=== PATIENT | male | born 1955 | race Caucasian/White ===

== ENCOUNTER → 2018-03-16 10:52 | Outpatient (CLI) | payer BC, SELFPAY | PROVIDERS: PCP Internal Medicine; Visit Provider Internal Medicine | DX: R00.2 Palpitations (principal); I10 Essential (primary) hypertension | CPT/HCPCS: 93005 ==

== ENCOUNTER → 2020-06-19 10:39 | Outpatient (CLI) | payer BC, SELFPAY ==
--- NOTE | 2020-06-19 10:44 | XR_ITS ---
PROCEDURE: XR KUB CLINICAL INDICATION: LT FLANK PAIN,HEMATURIA,LLQ PAIN COMPARISON: CR KUB KUB (SINGLE VIEW) from 06/15/2014 CT ABDPELW/O CT ABD PELVIS W/O CONTRAST from 04/09/2017 FINDINGS: A cluster of stones is noted in the mid polar region of the left kidney measuring approximately 15 mm. Multiple pelvic calcifications are present and may be vascular having a similar appearance on the previous exam. Prostate calcifications are also noted. IMPRESSION: Left nephrolithiasis Dictated by: Pramod Patel MD 06/19/2020 11:28 Pramod Patel MD in [place] 06/19/2020 11:28
== END ==
PROVIDERS: PCP Internal Medicine; Visit Provider Internal Medicine
DX: R10.32 Left lower quadrant pain (principal); R31.0 Gross hematuria
CPT/HCPCS: 74018

== ENCOUNTER → 2020-06-28 10:19 | Outpatient (CLI) | payer BC, SELFPAY ==
--- NOTE | 2020-06-28 10:22 | CT_ITS ---
PROCEDURE: CT ABDOMEN PELVIS WO CON CLINICAL INDICATION: LLQ PAIN, HEMATURIA Left flank pain COMPARISON: CT ABDPELW/O CT ABD PELVIS W/O CONTRAST from 01/11/2014 CT ABDPELW/O CT ABD PELVIS W/O CONTRAST from 04/09/2017 TECHNIQUE: Axial images obtained with sagittal and coronal reformats. All CT scans at the facility use one or more dose reduction, viz: automated exposure control, ma/kV adjustment per patient size (including targeted exams where dose is matched to indication, i.e. head), or iterative reconstruction technique. FINDINGS: LOWER THORAX: Chronic changes are present in the lung bases. There are coronary artery calcifications. ABDOMEN & PELVIS: The liver, gallbladder, spleen, adrenal glands, and pancreas has an unremarkable appearance. There is a prominent uncinate process of the pancreas as a variant of normal Did scattered small nodes are present in the portal region not significantly changed. A cluster of stones is noted in the mid polar region of the left kidney measuring 15 by 6 mm. No ureteral calculi. No hydronephrosis. No intestinal obstruction or free air. There are scattered colonic diverticula. No evidence appendicitis. No evidence of diverticulitis. Coarse calcification is present within the central aspect of the prostate. No acute bony findings are evident. IMPRESSION: 1. Left nephrolithiasis. The stone burden has slightly increased compared to 04/09/2017. No ureteral calculi or hydronephrosis. 2. Colonic diverticulosis without diverticulitis with other nonacute findings as described above. Dictated by: Pramod Patel MD 06/29/2020 09:23 Pramod Patel MD in [facility] 06/29/2020 09:23
== END ==
PROVIDERS: PCP Internal Medicine; Visit Provider Internal Medicine
DX: R10.32 Left lower quadrant pain (principal); R31.9 Hematuria, unspecified
CPT/HCPCS: 74176

== ENCOUNTER → 2020-09-15 09:50 | Outpatient (CLI) | payer BC, SELFPAY ==
--- NOTE | 2020-09-15 09:55 | US_ITS ---
PROCEDURE: US TESTICULAR CLINICAL INDICATION: SCROTOL PAIN COMPARISON: No exams were available for comparison FINDINGS: The right testicle is 3.7 x 3.6 x 3.3 cm. There are 2 small epididymal cyst on the right. No testicular mass is evident. No hydrocele. The left testicle is 3.5 x 2.3 x 2.4 cm. Varicocele is noted on the left. No left testicular mass. There is blood flow within the left testicle. IMPRESSION: Left-sided varicocele. Two small right epididymal cysts Dictated by: Pramod Patel MD 09/15/2020 13:00 Pramod Patel MD in [place] 09/15/2020 13:00
== END ==
PROVIDERS: PCP Internal Medicine; Visit Provider Urology
DX: N50.82 Scrotal pain (principal)
CPT/HCPCS: 76870

== ENCOUNTER → 2021-07-10 14:22 | Outpatient (CLI) | payer MEDICARE, SELFPAY ==
[2021-07-10 14:32] LABS: Basophils # 0.1 K/mm3 (0-0.2); Basophils % 0.9 % (0.1-2.0); Eosinophils # 0.3 K/mm3 (0.0-0.4); Eosinophils % 3.7 % (0.1-12.0); Hematocrit 47.2 % (42.0-52.0); Hemoglobin 16.4 g/dL (14.1-18.0); Lymphocytes # 3.3 K/mm3 (0.7-4.5); Lymphocytes % 37.1 % (10-50); Mean Corpuscular HGB Conc 34.8 g/dL (31.8-35.4); Mean Corpuscular Hemoglobin 30.6 pg (27.0-31.2); Mean Corpuscular Volume 87.8 fl (80-94); Mean Platelet Volume 8.8 fl (7.4-10.4); Monocytes # 0.7 K/mm3 (0.1-1.0); Neutrophils # 4.5 K/mm3 (1.8-7.8); Neutrophils % 50.2 % (37.0-80.0); Platelet Count 199 K/mm3 (142-424); Red Blood Count 5.38 M/mm3 (4.60-6.20); Red Cell Distribution Width 13.8 % (11.5-17.5)
[2021-07-10 15:06] LABS: Alanine Aminotransferase 37 U/L (12-78); Albumin Level 4.3 g/dl (3.5-5.0); Albumin/Globulin Ratio 1.7 (1.1-1.8); Alkaline Phosphatase 62 U/L (38-126); Anion Gap 13.1 mEq/L (5-15); Aspartate Amino Transferase 44 U/L (17-59); Bilirubin,Total 0.6 mg/dl (0.2-1.3); Blood Urea Nitrogen 13 mg/dl (9-20); Calcium 9.4 mg/dl (8.4-10.2); Carbon Dioxide 26 mmol/L (22.0-30.0); Chloride 105 mmol/L (98-107); Chol/HDL Ratio 4.5 (1-3.5); Cholesterol 159 mg/dl (140-200); Estimated Glomerular Filt Rate 61 ml/min (>60); GFR (African American) 74 ML/MIN (>60); Globulin 2.6 g/dL (1.3-3.2); Glucose 102 mg/dl (74-100); HDL Cholesterol 35 mg/dl (40-60); Potassium 5.1 mmoL/L (3.5-5.1); Sodium 139 mmol/L (136-145); Total Protein,Serum 6.9 g/dl (6.3-8.2); Triglycerides 243 mg/dl (30-150); VLDL Cholesterol 49 mg/dL (0-40)
== END ==
PROVIDERS: Visit Provider Internal Medicine
DX: I25.10 Atherosclerotic heart disease of native coronary artery without angina pectoris (principal); E78.5 Hyperlipidemia, unspecified; E53.8 Deficiency of other specified B group vitamins; J44.9 Chronic obstructive pulmonary disease, unspecified
CPT/HCPCS: 80053; 80061; 85025

== ENCOUNTER → 2022-01-07 12:17 | Outpatient (CLI) | payer MEDICARE, SELFPAY ==
[2022-01-07 14:28] LABS: Basophils # 0.1 K/mm3 (0-0.2); Basophils % 1.5 % (0.1-2.0); Eosinophils # 0.5 K/mm3 (0.0-0.4); Eosinophils % 4.6 % (0.1-12.0); Hemoglobin 17.2 g/dL (14.1-18.0); Lymphocytes # 3.2 K/mm3 (0.7-4.5); Lymphocytes % 33.2 % (10-50); Mean Corpuscular HGB Conc 33.1 g/dL (31.8-35.4); Mean Corpuscular Hemoglobin 29.4 pg (27.0-31.2); Mean Corpuscular Volume 88.9 fl (80-94); Mean Platelet Volume 8.7 fl (7.4-10.4); Monocytes # 0.7 K/mm3 (0.1-1.0); Monocytes % 7.6 % (1.7-9.3); Neutrophils # 5.2 K/mm3 (1.8-7.8); Neutrophils % 53.1 % (37.0-80.0); Platelet Count 194 K/mm3 (142-424); Red Blood Count 5.85 M/mm3 (4.60-6.20); Red Cell Distribution Width 14.4 % (11.5-17.5); White Blood Count 9.7 K/mm3 (4.8-10.8)
[2022-01-07 14:32] LABS: Alanine Aminotransferase 43 U/L (12-78); Albumin Level 4.2 g/dl (3.5-5.0); Albumin/Globulin Ratio 1.7 (1.1-1.8); Alkaline Phosphatase 69 U/L (38-126); Anion Gap 12.7 mEq/L (5-15); Aspartate Amino Transferase 39 U/L (17-59); Bilirubin,Total 0.4 mg/dl (0.2-1.3); Blood Urea Nitrogen 13 mg/dl (9-20); Calcium 9.1 mg/dl (8.4-10.2); Carbon Dioxide 23 mmol/L (22.0-30.0); Chloride 107 mmol/L (98-107); Chol/HDL Ratio 4.8 (1-3.5); Cholesterol 179 mg/dl (140-200); Estimated Glomerular Filt Rate 75 ml/min (>60); GFR (African American) 91 ML/MIN (>60); Globulin 2.5 g/dL (1.3-3.2); Glucose 116 mg/dl (74-100); HDL Cholesterol 37 mg/dl (40-60); Potassium 4.7 mmoL/L (3.5-5.1); Sodium 138 mmol/L (136-145); Total Protein,Serum 6.7 g/dl (6.3-8.2); Triglycerides 257 mg/dl (30-150); VLDL Cholesterol 51 mg/dL (0-40)
[2022-01-07 14:44] LABS: Direct LDL Cholesterol 102.77 mg/dL (100-129)
[2022-01-07 15:01] LABS: Prostate Specific Ag Screen 0.5 ng/ml (0.0-4.0)
== END ==
PROVIDERS: PCP Internal Medicine; Visit Provider Internal Medicine
DX: I25.10 Atherosclerotic heart disease of native coronary artery without angina pectoris (principal); E78.5 Hyperlipidemia, unspecified; E53.8 Deficiency of other specified B group vitamins; J44.9 Chronic obstructive pulmonary disease, unspecified; Z12.5 Encounter for screening for malignant neoplasm of prostate
CPT/HCPCS: 80053; 80061; 85025; G0103

== ENCOUNTER → 2022-07-16 12:11 | Outpatient (CLI) | payer MEDICARE, SELFPAY ==
[2022-07-16 14:43] LABS: Alanine Aminotransferase 40 U/L (12-78); Albumin Level 4.4 g/dl (3.5-5.0); Albumin/Globulin Ratio 1.9 (1.1-1.8); Alkaline Phosphatase 87 U/L (38-126); Anion Gap 21.2 mEq/L (5-15); Aspartate Amino Transferase 43 U/L (17-59); Bilirubin,Total 0.5 mg/dl (0.2-1.3); Blood Urea Nitrogen 14 mg/dl (9-20); Calcium 9.5 mg/dl (8.4-10.2); Carbon Dioxide 27 mmol/L (22.0-30.0); Chloride 97 mmol/L (98-107); Chol/HDL Ratio 4.2 (1-3.5); Cholesterol 157 mg/dl (140-200); Estimated Glomerular Filt Rate 55 ml/min (>60); GFR (African American) 67 ML/MIN (>60); Globulin 2.3 g/dL (1.3-3.2); Glucose 103 mg/dl (74-100); HDL Cholesterol 37 mg/dl (40-60); Potassium 4.2 mmoL/L (3.5-5.1); Sodium 141 mmol/L (136-145); Total Protein,Serum 6.7 g/dl (6.3-8.2); Triglycerides 310 mg/dl (30-150); VLDL Cholesterol 62 mg/dL (0-40)
[2022-07-16 14:55] LABS: Direct LDL Cholesterol 76.39 mg/dL (100-129)
[2022-07-16 17:31] LABS: Basophils # 0.1 K/mm3 (0-0.2); Basophils % 1.5 % (0.1-2.0); Eosinophils # 0.3 K/mm3 (0.0-0.4); Eosinophils % 3.2 % (0.1-12.0); Hematocrit 49.7 % (42.0-52.0); Hemoglobin 15.8 g/dL (14.1-18.0); Lymphocytes # 2.6 K/mm3 (0.7-4.5); Lymphocytes % 30.2 % (10-50); Mean Corpuscular HGB Conc 31.9 g/dL (31.8-35.4); Mean Corpuscular Volume 94.3 fl (80-94); Mean Platelet Volume 9.5 fl (7.4-10.4); Monocytes # 0.6 K/mm3 (0.1-1.0); Monocytes % 7.4 % (1.7-9.3); Neutrophils # 4.9 K/mm3 (1.8-7.8); Neutrophils % 57.6 % (37.0-80.0); Platelet Count 186 K/mm3 (142-424); Red Blood Count 5.26 M/mm3 (4.60-6.20); Red Cell Distribution Width 13.5 % (11.5-17.5); White Blood Count 8.5 K/mm3 (4.8-10.8)
== END ==
PROVIDERS: PCP Internal Medicine; Visit Provider Internal Medicine
DX: I25.10 Atherosclerotic heart disease of native coronary artery without angina pectoris (principal); I49.3 Ventricular premature depolarization; E78.5 Hyperlipidemia, unspecified; E53.8 Deficiency of other specified B group vitamins; F41.9 Anxiety disorder, unspecified
CPT/HCPCS: 80053; 80061; 85025

== ENCOUNTER → 2022-12-23 12:35 | Outpatient (CLI) | payer MEDICARE, SELFPAY ==
[2022-12-23 15:25] LABS: Hemoglobin A1C 5.7 % (4.0-6.0)
[2022-12-23 15:49] LABS: Alanine Aminotransferase 45 U/L (12-78); Albumin Level 4.4 g/dl (3.5-5.0); Albumin/Globulin Ratio 1.9 (1.1-1.8); Alkaline Phosphatase 69 U/L (38-126); Anion Gap 18.5 mEq/L (5-15); Aspartate Amino Transferase 43 U/L (17-59); Bilirubin,Total 0.7 mg/dl (0.2-1.3); Blood Urea Nitrogen 15 mg/dl (9-20); Calcium 8.9 mg/dl (8.4-10.2); Carbon Dioxide 25 mmol/L (22.0-30.0); Chloride 100 mmol/L (98-107); Chol/HDL Ratio 4.1 (1-3.5); Cholesterol 167 mg/dl (140-200); Estimated Glomerular Filt Rate 67 ml/min (>60); GFR (African American) 81 ML/MIN (>60); Globulin 2.3 g/dL (1.3-3.2); Glucose 114 mg/dl (74-100); HDL Cholesterol 41 mg/dl (40-60); Potassium 4.5 mmoL/L (3.5-5.1); Sodium 139 mmol/L (136-145); Total Protein,Serum 6.7 g/dl (6.3-8.2); Triglycerides 321 mg/dl (30-150); VLDL Cholesterol 64 mg/dL (0-40)
[2022-12-23 16:01] LABS: Direct LDL Cholesterol 79.84 mg/dL (100-129)
[2022-12-23 16:19] LABS: Prostate Specific Ag Screen 0.5 ng/ml (0.0-4.0)
== END ==
PROVIDERS: PCP Internal Medicine; Visit Provider Internal Medicine
DX: I25.10 Atherosclerotic heart disease of native coronary artery without angina pectoris (principal); I49.3 Ventricular premature depolarization; E53.8 Deficiency of other specified B group vitamins; E78.5 Hyperlipidemia, unspecified; F41.9 Anxiety disorder, unspecified; N40.1 Benign prostatic hyperplasia with lower urinary tract symptoms; Z12.5 Encounter for screening for malignant neoplasm of prostate; R73.9 Hyperglycemia, unspecified
CPT/HCPCS: 80053; 80061; 83036; G0103

== ENCOUNTER → 2023-06-23 14:23 | Outpatient (CLI) | payer MEDICARE, SELFPAY ==
[2023-06-23 16:59] LABS: Alanine Aminotransferase 39 U/L (12-78); Albumin Level 4.5 g/dl (3.5-5.0); Albumin/Globulin Ratio 1.8 (1.1-1.8); Alkaline Phosphatase 62 U/L (38-126); Anion Gap 17.5 mEq/L (5-15); Aspartate Amino Transferase 41 U/L (17-59); Bilirubin,Total 0.6 mg/dl (0.2-1.3); Blood Urea Nitrogen 17 mg/dl (9-20); Calcium 9.5 mg/dl (8.4-10.2); Carbon Dioxide 25 mmol/L (22.0-30.0); Chloride 104 mmol/L (98-107); Chol/HDL Ratio 4.4 (1-3.5); Cholesterol 164 mg/dl (140-200); Estimated Glomerular Filt Rate 55 ml/min (>60); GFR (African American) 67 ML/MIN (>60); Globulin 2.5 g/dL (1.3-3.2); Glucose 101 mg/dl (74-100); HDL Cholesterol 37 mg/dl (40-60); Potassium 4.5 mmoL/L (3.5-5.1); Sodium 142 mmol/L (136-145); Triglycerides 289 mg/dl (30-150); VLDL Cholesterol 58 mg/dL (0-40)
[2023-06-23 17:10] LABS: Direct LDL Cholesterol 86.59 mg/dL (100-129)
[2023-06-23 17:14] LABS: Hemoglobin A1C 5.6 % (4.0-6.0)
[2023-06-23 17:27] LABS: Prostate Specific Ag Screen 0.5 ng/ml (0.0-4.0)
== END ==
PROVIDERS: PCP Internal Medicine; Visit Provider Internal Medicine
DX: I25.10 Atherosclerotic heart disease of native coronary artery without angina pectoris (principal); I49.3 Ventricular premature depolarization; E78.5 Hyperlipidemia, unspecified; E53.8 Deficiency of other specified B group vitamins; F32.1 Major depressive disorder, single episode, moderate; J44.9 Chronic obstructive pulmonary disease, unspecified; R73.02 Impaired glucose tolerance (oral); N40.1 Benign prostatic hyperplasia with lower urinary tract symptoms; Z12.5 Encounter for screening for malignant neoplasm of prostate; Z83.3 Family history of diabetes mellitus
CPT/HCPCS: 80053; 80061; 83036; G0103

== ENCOUNTER → 2023-07-28 14:49 | Outpatient (CLI) | payer MEDICARE, SELFPAY ==
--- NOTE | 2023-07-28 14:54 | XR_ITS ---
FINAL REPORT CLINICAL HISTORY: mid back pain lumbar pain with rt sciatica pain COMPARISON: None FINDINGS: CERVICAL SPINE 5 views were obtained. There is no acute fracture. There is moderate disc space narrowing at C6-7. There is prominent anterior osteophyte formation at C6-7. There is no malalignment. THORACIC SPINE 3 views of the thoracic spine were obtained. There is no acute fracture. Vertebrae are normal in height. Disc spaces are preserved. There is no malalignment. LUMBOSACRAL SPINE 5 views of the lumbosacral spine were obtained. There is no acute fracture. There is moderate anterior osteophyte formation at L4-5. Vertebrae are normal in height. There is no malalignment. IMPRESSION: No acute process in the cervical, thoracic, or lumbosacral spine. Reviewed, Interpreted and Dictated by Mj Wilson MD Transcribed by Treva Ramirez Authenticated and . [facility]
== END ==
PROVIDERS: PCP Internal Medicine; Visit Provider Internal Medicine
DX: M54.41 Lumbago with sciatica, right side (principal); M54.2 Cervicalgia; M54.6 Pain in thoracic spine
CPT/HCPCS: 72084

== ENCOUNTER 2023-09-17 14:00 | Outpatient (RCR) | payer MEDICARE, SELFPAY | END 2023-09-17 15:00 | disposition home or self-care (01) | LOC: PT 14:00 | PROVIDERS: PCP Internal Medicine; Visit Provider Internal Medicine | DX: M54.2 Cervicalgia (principal); M54.6 Pain in thoracic spine; M54.50 Low back pain, unspecified | CPT/HCPCS: 97010; 97014; 97110; 97163; 97530; G0283 ==

== ENCOUNTER 2024-08-26 11:54 | Outpatient (CLI) | payer MEDICARE, SELFPAY ==
[2024-08-26 11:46] LABS: Basophils # 0.1 K/mm3 (0-0.2); Basophils % 0.9 % (0.1-2.0); Eosinophils # 0.4 K/mm3 (0.0-0.4); Eosinophils % 3.5 % (0.1-12.0); Hematocrit 51.8 % (42.0-52.0); Hemoglobin 17.2 g/dL (14.1-18.0); Lymphocytes % 29.4 % (10-50); Mean Corpuscular HGB Conc 33.2 g/dL (31.8-35.4); Mean Corpuscular Hemoglobin 29.9 pg (27.0-31.2); Mean Corpuscular Volume 89.9 fl (80-94); Mean Platelet Volume 9.9 fl (7.4-10.4); Monocytes % 9.3 % (1.7-9.3); Neutrophils # 5.8 K/mm3 (1.8-7.8); Neutrophils % 56.3 % (37.0-80.0); Platelet Count 177 K/mm3 (142-424); Red Blood Count 5.76 M/mm3 (4.60-6.20); Red Cell Distribution Width 13.5 % (11.5-17.5); White Blood Count 10.4 K/mm3 (4.8-10.8)
[2024-08-26 12:11] LABS: Albumin Level 4.7 g/dl (3.5-5.0); Chloride 104 mmol/L (98-107)
[2024-08-26 12:12] LABS: Potassium 5.4 mmoL/L (3.5-5.1); Sodium 142 mmol/L (136-145)
[2024-08-26 12:14] LABS: Alanine Aminotransferase 32 U/L (12-78); Aspartate Amino Transferase 41 U/L (17-59); Blood Urea Nitrogen 15 mg/dl (9-20); Estimated Glomerular Filt Rate 60 ml/min (>60); GFR (African American) 73 ML/MIN (>60)
[2024-08-26 12:15] LABS: Alkaline Phosphatase 65 U/L (38-126); Anion Gap 15.4 mEq/L (5-15); Bilirubin,Total 0.7 mg/dl (0.2-1.3); Calcium 9.9 mg/dl (8.4-10.2); Carbon Dioxide 28 mmol/L (22.0-30.0); Chol/HDL Ratio 4.2 (1-3.5); Cholesterol 163 mg/dl (140-200); Globulin 2.3 g/dL (1.3-3.2); Glucose 104 mg/dl (74-100); HDL Cholesterol 39 mg/dl (40-60); Triglycerides 244 mg/dl (30-150); VLDL Cholesterol 49 mg/dL (0-40)
[2024-08-26 12:37] LABS: Direct LDL Cholesterol 85.87 mg/dL (100-129)
[2024-08-26 13:47] LABS: Prostate Specific Ag Screen 0.4 ng/ml (0.0-4.0)
== END 2024-08-26 23:59 | disposition home or self-care (01) ==
LOC: LAB.DROPOF 11:55
PROVIDERS: PCP Internal Medicine; Visit Provider Internal Medicine
DX: I25.10 Atherosclerotic heart disease of native coronary artery without angina pectoris (principal); E78.5 Hyperlipidemia, unspecified; I49.3 Ventricular premature depolarization; Z12.5 Encounter for screening for malignant neoplasm of prostate
CPT/HCPCS: 80053; 80061; 85025; G0103

== ENCOUNTER 2025-02-17 09:47 | Outpatient (CLI) | payer MEDICARE, SELFPAY ==
--- OUTSIDE RECORDS SUMMARY | 2025-01-04 09:00 | XMS_ITS | Encounter Summary ---
Author Organization [facility] ([place], [place], [place], [place]) Address [address] [place] [address] Care Team Providers Care Import And Export Clerk Name Role Phone Roc Bonilla MD Primary Care Provider [phone] Marisa Coy REMNANT SORTER Unavailable [phone] Reason for Visit * Reason Comments Follow-up Encounter Details Date Type Department Care Team (Late st Contact Info) Description 01/04/2025 9:00 AM EDT Office Visit [facility] Cardiology [address] [phone] [place] SwitchMarisa chávez, REMNANT SORTER [address] [facility] [address] [place] [address] ASCVD (arteriosclerotic cardiovascular disease) (Primary Dx); Benign essential hypertension; Hyperlipidemia; Obstructive sleep apnea; PVC (premature ventricular contraction); Morbid obesity (HCC) Social History Tobacco Use Types Packs/Day Years Used Date Smoking Tobacco: Former Cigarettes 2.5 30 Smokeless Tobacco: Never Alcohol Use Standard Drinks/Week Comments Yes 0 (1 standard drink = 0.6 oz pur e alcohol) a little bit not much Family and Community Support Answer Alfonso e Recorded Help with Day to Day Activities Not on file 08/28/2023 Feeling Lonely or Isolated Not on file 08/28 Educational Attainment Answer Date Ajit rded Speak language other than Micronesian at home Not on file 08/28/2023 Want help with school or training Not on file 08/28/2023 Substance Use Answer Date Recorded Used prescription meds for non-medical reasons N ot on file 08/28/2023 Used illegal drugs past 12 months Not on file 08/28/2023 Sex and Gender Information Value Date Recorded Sex Assigned at Not on file Legal Sex Male 4:36 PM CDT Gender Identity Not on file Sexual Orientation Not on file Occupation Industry Job Start Date Job End Date retired Not on file Not on file Not on file documented as of this encounter Last Filed Vital Signs Vital Sign Reading Time Taken Comments Blood Pressure 120/80 01/04/2025 8:57 AM EDT Pulse 56 01/04/2025 8:57 AM EDT Temperature - - Respiratory Rate - - Oxygen Saturation - - Inhaled Oxygen Concentration - - Weight 105.2 kg (232 lb) 01/04/2025 8:57 AM EDT Height 185.4 cm (6' 1 ) 01/04/2025 8:57 AM EDT Body Mass Index 30.61 01/04/2025 8:57 AM EDT documented in this encounter Progress Notes * Marisa Coy, REMNANT SORTER - 01/04/2025 9:00 AM EDT Basic Information: Name: Antonio Ramirez, :1955 PCP: Roc Bonilla MD HPI: Antonio Ramirez is a 69 y.o. year old male with a past medical history of CAD status post multiple stents done remotely outside hospitals, frequent symptomatic PVCs, hypertension, and dyslipidemia. He presents to the office today for 1 month follow up and to discuss the results of his recent stress test and ECHO. He continues to have episodes of occasional twinges in the right side of his chest that feels like a stinging pain. He is compliant with his medications. He denies any chest pain shortness of breath, palpitations, dizziness, edema, or syncope. Review of Systems: ROS Pertinent positives as listed in the HPI. All other systems reviewed are negative. History: History Past Medical History: Diagnosis Date ASCVD (arteriosclerotic cardiovascular disease) Benign essential hypertension COPD (chronic obstructive pulmonary disease) (HCC) Hard of hearing Mixed hyperlipidemia Myocardial infarction (HCC) 08/07/2022 PVC (premature ventricular contraction) Stented coronary artery Past Surgical History: Procedure Laterality Date CORONARY ANGIOPLASTY WITH STENT PLACEMENT LUNG SURGERY Social History Tobacco Use Smoking status: Former Current packs/day: 2.50 Average packs/day: 2.5 packs/day for 30.0 years (75.0 ttl pk-yrs) Types: Cigarettes Smokeless tobacco: Never Substance Use Topics Alcohol use: Yes Comment: a little bit not much Allergies Allergen Reactions Morphine Nausea And Vomiting Skelaxin [Metaxalone] Tolmetin Other (See Comments) Medications: Scheduled Meds: Continuous Infusions: Current Outpatient Medications Medication Sig Dispense Refill amLODIPine (NORVASC) 5 MG tablet TAKE ONE TABLET BY MOUTH EVERY DAY 90 tablet 4 aspirin 81 MG EC tablet Take 1 tablet (81 mg total) by mouth daily. bisoprolol (ZEBETA) 5 MG tablet TAKE 1/2 TABLET BY MOUTH EVERY DAY 90 tablet 3 codeine-guaifenesin (GUAIFENESIN AC) 10-100 mg/5 mL liquid Take 5 mLs by mouth 3 (three) times daily as needed for cough. diazePAM (VALIUM) 5 MG tablet Take 1 tablet (5 mg total) by mouth 2 (two) times daily as needed. escitalopram oxalate (LEXAPRO) 10 MG tablet Take 1 tablet (10 mg total) by mouth daily. (Patient taking differently: Take 2 tablets (20 mg total) by mouth daily.) flecainide (TAMBOCOR) 50 MG tablet TAKE 1 AND 1/2 TABLET BY MOUTH TWICE DAILY 270 tablet 4 linaCLOtide (LINZESS) 145 mcg Cap Take 1 capsule (145 mcg total) by mouth daily as needed As needed. potassium citrate 15 mEq TbER Take 1 tablet (15 mEq total) by mouth 2 (two) times daily. rosuvastatin (CRESTOR) 20 MG tablet TAKE ONE TABLET BY MOUTH EVERY night 90 tablet 0 zolpidem (AMBIEN) 5 MG tablet Take 1 tablet (5 mg total) by mouth every night as needed. No current facility-administered medications for this visit. PRN Meds:.@MEDSPRN@ Objective: BP 120/80 (BP Location: Left arm, Patient Position: Sitting) Pulse 56 Ht 1.854 m (6' 1 ) Wt 105.2 kg (232 lb) BMI 30.61 kg/m?? Physical Exam Vitals reviewed. Constitutional: Appearance: Normal appearance. HENT: Head: Normocephalic. Neck: Vascular: No carotid bruit. Cardiovascular: Rate and Rhythm: Normal rate and regular rhythm. Pulses: Normal pulses. Heart sounds: Normal heart sounds. No murmur heard. Pulmonary: Effort: Pulmonary effort is normal. Breath sounds: Normal breath sounds. Abdominal: General: There is no distension. Palpations: Abdomen is soft. Musculoskeletal: General: No swelling or deformity. Skin: General: Skin is warm and dry. Capillary Refill: Capillary refill takes less than 2 seconds. Neurological: General: No focal deficit present. Mental Status: He is alert and oriented to person, place, and time. Psychiatric: Mood and Affect: Mood normal. Behavior: Behavior normal. EKG: Sinus bradycardia with first degree AV block, ventricular rate 55 bpm Assessment: 1. ASCVD (arteriosclerotic cardiovascular disease) 2. Benign essential hypertension 3. Hyperlipidemia 4. Obstructive sleep apnea 5. PVC (premature ventricular contraction) 6. Morbid obesity (HCC) * Coronary artery disease- denies anginal symptoms -History of multiple stents OSH -11/2024 ECHO- EF 55%, normal diastolic function, no significant valvular disease -11/2024 Lexiscan MPI - no reversible defects, low risk study *Frequent PVCs-follows with EP *Hypertension-controlled on current medications *Hyperlipidemia- statin therapy * SUNDAY- not complaint with CPAP *Obesity Plan: -Continue with aspirin 81 mg indefinitely along with high intensity statin therapy for established CAD. -Periodic blood work as prescribed with PCP, specifically lipid profile with a goal LDL less than 55. -Blood pressure at goal today continue current antihypertensive regimen. -PA for Bahman has been obtained. He is now unsure if he would like to take this medication. He will call back to our office if he changes his mind. -Encouraged patient to increase physical activity for a goal of 150 minutes of moderate cardiovascular activity each week. Follow a heart healthy diet to reduce cardiovascular risk. Follow- up: 6 months or sooner if needed documented in this encounter Plan of Treatment Upcoming Encounters Date Type Department Care Team (Late st Contact Info) Description 03/10/2025 9:45 AM EDT Office Visit [facility] Electrophysiology [address] [place] [address] Jorge Luis Ervin MD [address] [place] [address] [address] [place] [id number] documented as of this encounter Procedures Procedure Name Priority Date/Time Associated Diagnosis Comments [id number] 12-LEAD Routine 01/05/2025 4:48 PM EDT ASCVD (arteriosclerotic cardiovascular disease) Benign essential hypertension documented in this encounter Results * ECG 12 lead (01/05/2025 4:48 PM EDT) Marisa Olivares [place] APRN ECG ORDERABLES Final Result documented in this encounter Visit Diagnoses Diagnosis ASCVD (arteriosclerotic cardiovascular disease)- Primary Unspecified cardiovascular disease Benign essential hypertension Essential hypertension, benign Hyperlipidemia Other and unspecified hyperlipidemia Obstructive sleep apnea Obstructive sleep apnea (adult) (pediatric) PVC (premature ventricular contraction) Other premature beats Morbid obesity (HCC) Morbid obesity documented in this encounter Care Teams Import And Export Clerk Relationship Specialty Start Date End Date Roc Bonilla MD [address] [place] [address] [place] [address] PCP - General General Internal Medicine 08/07/22 Marisa Coy, KAILEY [address] [facility] [address] [place] [address] Cardiology 10/09/23 documented as of this encounter
[2025-02-17 15:44] LABS: Alanine Aminotransferase 32 U/L (12-78); Albumin Level 4.6 g/dl (3.5-5.0); Albumin/Globulin Ratio 1.8 (1.1-1.8); Alkaline Phosphatase 64 U/L (38-126); Anion Gap 13.8 mEq/L (5-15); Aspartate Amino Transferase 36 U/L (17-59); Bilirubin,Total 0.8 mg/dl (0.2-1.3); Blood Urea Nitrogen 15 mg/dl (9-20); Calcium 9.3 mg/dl (8.4-10.2); Carbon Dioxide 26 mmol/L (22.0-30.0); Chloride 102 mmol/L (98-107); Cholesterol 146 mg/dl (140-200); Creatinine,Serum 1.00 mg/dl (0.66-1.25); Estimated Glomerular Filt Rate 74 ml/min (>60); GFR (African American) 90 ML/MIN (>60); Globulin 2.5 g/dL (1.3-3.2); Glucose 97 mg/dl (74-100); HDL Cholesterol 32 mg/dl (40-60); Potassium 4.8 mmoL/L (3.5-5.1); Sodium 137 mmol/L (136-145); Total Protein,Serum 7.1 g/dl (6.3-8.2)
[2025-02-17 15:56] LABS: Triglycerides 414 mg/dl (30-150)
--- OUTSIDE RECORDS SUMMARY | 2025-02-21 09:58 | XMS_ITS | Encounter Summary ---
Author Organization [employer] ([place], [place], [place], [place]) Address [address] [place] [address] Care Team Providers Care [employer] Name Role Phone Roc Bonilla MD Primary Care Provider [phone] Marisa Coy APRN Unavailable [phone] Encounter Details Date Type Department Care Team (Late st Contact Info) Description 09/18/2020 Transcribed Document [facility] Family Medicine [address] [place] [address] ProviderAlexander MD [address] [place] [address] Social History Tobacco Use Types Packs/Day Years Used Date Smoking Tobacco: Never Assessed Sex and Gender Information Value Date Recorded Sex Assigned at Not on file Legal Sex Male 4:36 PM CDT Gender Identity Not on file Sexual Orientation Not on file documented as of this encounter Miscellaneous Notes * Cerner Conversion Note - Alexander ProviderMD - 09/18/2020 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 [place] [id number] THA RAMIREZ :1955 Visit Time:09/18/2020 What to do next Your Diagnosis Calculus of kidney, Calculus of kidney Instructions From Your Care Team Diet after Discharge: Resume usual diet as tolerated, Do not drink any alcoholic beverages, Drink at least 8-10 glasses of water per day Activity after Discharge: As tolerated, Rest and relax today, No strenuous activity. walk 3-5x/day Driving after Discharge: Do not drive until 24 hours after no longer taking pain medications Showering/Bathing: May shower. no tubs baths until stent is removed. take a pain pill 30 min before removing the stent on morning. drink a glass or two of water and urinate while gently pulling the string out. Notify Provider of: excessive bleeding (tomato paste color/consistency) or lots of clots. also notify of inability to urinate. Medical Equipment for Home Use: strainer/cup for stone storage. strain urine for 2 weeks and keep stones in container to show at follow up appt. Take pain medicine with food to prevent nausea and use stool softeners 2-3x/day to prevent constipation do postural drainage exercises 2x/day for 2 weeks. Discharge Follow Up Instructions: Follow up Yury 6 weeks with KUB Activity: Discharge Activity: Activity as tolerated Diet: Discharge Diet: Resume usual diet as tolerated Follow-Up Appointments Follow Up with JENNIFER CARRANZA When 10/30/2020 11:30 AM EDT Comments Appointment has been made. you will have a kub scan at this appt Where: [address] [place] [address] [facility] (1) Medications What How Much When Instructions Next Dose acetaminophen (Tylenol) See instructions OTC unsure of dose 1 or 2 tabs oral prn pain atorvastatin 40 Milligram(s) Oral At Bedtime bisoprolol 5 Milligram(s) Oral Every Day codeine/ phenylephrine/ promethazine (Promethazine VC with Codeine) 5 Milliliter(s) Oral Every 6 Hours as needed for as needed for cough diazepam (Valium) 5 Milligram(s) Oral As needed for Anxiety lisinopril 10 Milligram(s) Oral Every Day mexiletine (mexiletine 200 mg oral capsule) 1 Capsule(s) Oral Every 8 Hours rosuvastatin (rosuvastatin 20 mg oral tablet) 1 Tablet(s) Oral Every Day Take your medications faithfully. Do NOT skip medication. Do NOT stop taking medications without the direction of a physician. Carry a list of your medications with you at all times, and take this medication list with you to your first follow up visit. Report any side effects. Avoid herbal remedies unless discussed with your physician. As part of your treatment plan, your physician may have prescribed a limited course of a controlled substance. This medication may be given to help people with moderate or severe pain or for other medical conditions, but there are risks involved with treatment. Common side effects may include nausea, constipation, drowsiness, sweating, itching, dry mouth, and rash. More serious side effects may include cognitive and motor impairment, like problems with thinking, concentrating, alertness, and movement (e.g. slowed reflexes), and driving and operating heavy machinery can be dangerous. It is important for you to talk to your physician if you have these side effects or questions. These controlled substances can produce physical dependence and be habit-forming if taken for an extended period of time, which means that the body has gotten used to them and may experience withdrawal symptoms if they are abruptly stopped. Withdrawal symptoms can include runny nose, sweating, goose bumps, diarrhea, abdominal cramping, rapid heartbeat, difficulty sleeping, and nervousness. Please dispose of unused and medications per pharmacy guidance. Education Materials General Anesthesia, Adult, Care After This sheet gives you information about how to care for yourself after your procedure. Your health care provider may also give you more specific instructions. If you have problems or questions, contact your health care provider. What can I expect after the procedure? After the procedure, the following side effects are common: ??? Pain or discomfort at the IV site. ??? Nausea. ??? Vomiting. ??? Sore throat. ??? Trouble concentrating. ??? Feeling cold or chills. ??? Weak or tired. ??? Sleepiness and fatigue. ??? Soreness and body aches. These side effects can affect parts of the body that were not involved in surgery. Follow these instructions at home: For at least 24 hours after the procedure: ??? Have a responsible adult stay with you. It is important to have someone help care for you until you are awake and alert. ??? Rest as needed. ??? Do not: ? Participate in activities in which you could fall or become injured. ? Drive. ? Use heavy machinery. ? Drink alcohol. ? Take sleeping pills or medicines that cause drowsiness. ? Make important decisions or sign legal documents. ? Take care of children on your own. Eating and drinking ??? Follow any instructions from your health care provider about eating or drinking restrictions. ??? When you feel hungry, start by eating small amounts of foods that are soft and easy to digest (bland), such as toast. Gradually return to your regular diet. ??? Drink enough fluid to keep your urine pale yellow. ??? If you vomit, rehydrate by drinking water, juice, or clear broth. General instructions ??? If you have sleep apnea, surgery and certain medicines can increase your risk for breathing problems. Follow instructions from your health care provider about wearing your sleep device: ? Anytime you are sleeping, including during daytime naps. ? While taking prescription pain medicines, sleeping medicines, or medicines that make you drowsy. ??? Return to your normal activities as told by your health care provider. Ask your health care provider what activities are safe for you. ??? Take [id number] and prescription medicines only as told by your health care provider. ??? If you smoke, do not smoke without supervision. ??? Keep all follow-up visits as told by your health care provider. This is important. Contact a health care provider if: ??? You have nausea or vomiting that does not get better with medicine. ??? You cannot eat or drink without vomiting. ??? You have pain that does not get better with medicine. ??? You are unable to pass urine. ??? You develop a skin rash. ??? You have a fever. ??? You have redness around your IV site that gets worse. Get help right away if: ??? You have difficulty breathing. ??? You have chest pain. ??? You have blood in your urine or stool, or you vomit blood. Summary ??? After the procedure, it is common to have a sore throat or nausea. It is also common to feel tired. ??? Have a responsible adult stay with you for the first 24 hours after general anesthesia. It is important to have someone help care for you until you are awake and alert. ??? When you feel hungry, start by eating small amounts of foods that are soft and easy to digest (bland), such as toast. Gradually return to your regular diet. ??? Drink enough fluid to keep your urine pale yellow. ??? Return to your normal activities as told by your health care provider. Ask your health care provider what activities are safe for you. This information is not intended to replace advice given to you by your health care provider. Make sure you discuss any questions you have with your health care provider. Document Released: 11/10/2001 Document Revised: 08/07/2018 Document Reviewed: 03/20/2018 Elsevier Patient Education ?? 2020 [employer] Dietary Guidelines to Help Prevent Kidney Stones Kidney stones are deposits of minerals and salts that form inside your kidneys. Your risk of developing kidney stones may be greater depending on your diet, your lifestyle, the medicines you take, and whether you have certain medical conditions. Most people can reduce their chances of developing kidney stones by following the instructions below. Depending on your overall health and the type of kidney stones you tend to develop, your dietitian may give you more specific instructions. What are tips for following this plan? Reading food labels ??? Choose foods with no salt added or low-salt labels. Limit your sodium intake to less than 1500 mg per day. ??? Choose foods with calcium for each meal and snack. Try to eat about 300 mg of calcium at each meal. Foods that contain 200???500 mg of calcium per serving include: ? 8 oz (237 ml) of milk, fortified nondairy milk, and fortified fruit juice. ? 8 oz (237 ml) of kefir, yogurt, and soy yogurt. ? 4 oz (118 ml) of tofu. ? 1 oz of cheese. ? 1 cup (300 g) of dried figs. ? 1 cup (91 g) of cooked broccoli. ? 1???3 oz can of sardines or mackerel. ??? Most people need 1000 to 1500 mg of calcium each day. Talk to your dietitian about how much calcium is recommended for you. Shopping ??? Buy plenty of fresh fruits and vegetables. Most people do not need to avoid fruits and vegetables, even if they contain nutrients that may contribute to kidney stones. ??? When shopping for convenience foods, choose: ? Whole pieces of fruit. ? Premade salads with dressing on the side. ? Low-fat fruit and yogurt smoothies. ??? Avoid buying frozen meals or prepared deli foods. ??? Look for foods with live cultures, such as yogurt and kefir. Cooking ??? Do not add salt to food when cooking. Place a salt shaker on the table and allow each person to add his or her own salt to taste. ??? Use vegetable protein, such as beans, textured vegetable protein (TVP), or tofu instead of meat in pasta, casseroles, and soups. Meal planning ??? Eat less salt, if told by your dietitian. To do this: ? Avoid eating processed or premade food. ? Avoid eating fast food. ??? Eat less animal protein, including cheese, meat, poultry, or fish, if told by your dietitian. To do this: ? Limit the number of times you have meat, poultry, fish, or cheese each week. Eat a diet free of meat at least 2 days a week. ? Eat only one serving each day of meat, poultry, fish, or seafood. ? When you prepare animal protein, cut pieces into small portion sizes. For most meat and fish, one serving is about the size of one deck of cards. ??? Eat at least 5 servings of fresh fruits and vegetables each day. To do this: ? Keep fruits and vegetables on hand for snacks. ? Eat 1 piece of fruit or a handful of berries with breakfast. ? Have a salad and fruit at lunch. ? Have two kinds of vegetables at dinner. ??? Limit foods that are high in a substance called oxalate. These include: ? Spinach. ? Rhubarb. ? Beets. ? Potato chips and occitan fries. ? Nuts. ??? If you regularly take a diuretic medicine, make sure to eat at least 1???2 fruits or vegetables high in potassium each day. These include: ? Avocado. ? Banana. ? [place], prune, carrot, or tomato juice. ? Baked potato. ? Cabbage. ? Beans and split peas. General instructions ??? Drink enough fluid to keep your urine clear or pale yellow. This is the most important thing you can do. ??? Talk to your health care provider and dietitian about taking daily supplements. Depending on your health and the cause of your kidney stones, you may be advised: ? Not to take supplements with vitamin C. ? To take a calcium supplement. ? To take a daily probiotic supplement. ? To take other supplements such as magnesium, fish oil, or vitamin B6. ??? Take all medicines and supplements as told by your health care provider. ??? Limit alcohol intake to no more than 1 drink a day for non women and 2 drinks a day for men. One drink equals 12 oz of beer, 5 oz of wine, or 1?? oz of hard liquor. ??? Lose weight if told by your health care provider. Work with your dietitian to find strategies and an eating plan that works best for you. What foods are not recommended? Limit your intake of the following foods, or as told by your dietitian. Talk to your dietitian about specific foods you should avoid based on the type of kidney stones and your overall health. Grains Breads. Bagels. Rolls. Baked goods. Salted crackers. Cereal. Pasta. Vegetables Spinach. Rhubarb. Beets. Canned vegetables. Pickles. Olives. Meats and other protein foods Nuts. Nut butters. Large portions of meat, poultry, or fish. Salted or cured meats. Deli meats. Hot dogs. Sausages. Dairy Cheese. Beverages Regular soft drinks. Regular vegetable juice. Seasonings and other foods Seasoning blends with salt. Salad dressings. Canned soups. Soy sauce. Ketchup. Barbecue sauce. Canned pasta sauce. Casseroles. Pizza. Lasagna. Frozen meals. Potato chips. Estonian fries. Summary ??? You can reduce your risk of kidney stones by making changes to your diet. ??? The most important thing you can do is drink enough fluid. You should drink enough fluid to keep your urine clear or pale yellow. ??? Ask your health care provider or dietitian how much protein from animal sources you should eat each day, and also how much salt and calcium you should have each day. This information is not intended to replace advice given to you by your health care provider. Make sure you discuss any questions you have with your health care provider. Document Released: 11/29/2011 Document Revised: 11/24/2019 Document Reviewed: 07/15/2017 [employer] Patient Education ?? 2020 [employer] Lithotripsy, Care After This sheet gives you information about how to care for yourself after your procedure. Your health care provider may also give you more specific instructions. If you have problems or questions, contact your health care provider. What can I expect after the procedure? After the procedure, it is common to have: ??? Some blood in your urine. This should only last for a few days. ??? Soreness in your back, sides, or upper abdomen for a few days. ??? Blotches or bruises on your back where the pressure wave entered the skin. ??? Pain, discomfort, or nausea when pieces (fragments) of the kidney stone move through the tube that carries urine from the kidney to the bladder (ureter). Stone fragments may pass soon after the procedure, but they may continue to pass for up to 4???8 weeks. ? If you have severe pain or nausea, contact your health care provider. This may be caused by a large stone that was not broken up, and this may mean that you need more treatment. ??? Some pain or discomfort during urination. ??? Some pain or discomfort in the lower abdomen or (in men) at the base of the penis. Follow these instructions at home: Medicines ??? Take [id number] and prescription medicines only as told by your health care provider. ??? If you were prescribed an antibiotic medicine, take it as told by your health care provider. Do not stop taking the antibiotic even if you start to feel better. ??? Do not drive for 24 hours if you were given a medicine to help you relax (sedative). ??? Do not drive or use heavy machinery while taking prescription pain medicine. Eating and drinking ??? Drink enough water and fluids to keep your urine clear or pale yellow. This helps any remaining pieces of the stone to pass. It can also help prevent new stones from forming. ??? Eat plenty of fresh fruits and vegetables. ??? Follow instructions from your health care provider about eating and drinking restrictions. You may be instructed: ? To reduce how much salt (sodium) you eat or drink. Check ingredients and nutrition facts on packaged foods and beverages. ? To reduce how much meat you eat. ??? Eat the recommended amount of calcium for your age and gender. Ask your health care provider how much calcium you should have. General instructions ??? Get plenty of rest. ??? Most people can resume normal activities 1???2 days after the procedure. Ask your health care provider what activities are safe for you. ??? Your health care provider may direct you to lie in a certain position (postural drainage) and tap firmly (percuss) over your kidney area to help stone fragments pass. Follow instructions as told by your health care provider. ??? If directed, strain all urine through the strainer that was provided by your health care provider. ? Keep all fragments for your health care provider to see. Any stones that are found may be sent to a medical lab for examination. The stone may be as small as a grain of salt. ??? Keep all follow-up visits as told by your health care provider. This is important. Contact a health care provider if: ??? You have pain that is severe or does not get better with medicine. ??? You have nausea that is severe or does not go away. ??? You have blood in your urine longer than your health care provider told you to expect. ??? You have more blood in your urine. ??? You have pain during urination that does not go away. ??? You urinate more frequently than usual and this does not go away. ??? You develop a rash or any other possible signs of an allergic reaction. Get help right away if: ??? You have severe pain in your back, sides, or upper abdomen. ??? You have severe pain while urinating. ??? Your urine is very dark red. ??? You have blood in your stool (feces). ??? You cannot pass any urine at all. ??? You feel a strong urge to urinate after emptying your bladder. ??? You have a fever or chills. ??? You develop shortness of breath, difficulty breathing, or chest pain. ??? You have severe nausea that leads to persistent vomiting. ??? You faint. Summary ??? After this procedure, it is common to have some pain, discomfort, or nausea when pieces (fragments) of the kidney stone move through the tube that carries urine from the kidney to the bladder (ureter). If this pain or nausea is severe, however, you should contact your health care provider. ??? Most people can resume normal activities 1???2 days after the procedure. Ask your health care provider what activities are safe for you. ??? Drink enough water and fluids to keep your urine clear or pale yellow. This helps any remaining pieces of the stone to pass, and it can help prevent new stones from forming. ??? If directed, strain your urine and keep all fragments for your health care provider to see. Fragments or stones may be as small as a grain of salt. ??? Get help right away if you have severe pain in your back, sides, or upper abdomen or have severe pain while urinating. This information is not intended to replace advice given to you by your health care provider. Make sure you discuss any questions you have with your health care provider. Document Released: 08/23/2008 Document Revised: 11/15/2019 Document Reviewed: 06/25/2017 [employer] Patient Education ?? 2020 [employer]. acetaminophen and hydrocodone (a SEET a MIN oh fen and ramos droe KOE done) Hycet, Lorcet, [place], Verdrocet, Vicodin, Xodol, Zamicet What is the most important information I should know about acetaminophen and hydrocodone? MISUSE OF OPIOID MEDICINE CAN CAUSE ADDICTION, OVERDOSE, OR . Keep the medication in a place where others cannot get to it. Taking opioid medicine during may cause life-threatening withdrawal symptoms in the . Fatal side effects can occur if you use opioid medicine with alcohol, or with other drugs that cause drowsiness or slow your breathing. Stop taking this medicine and call your doctor right away if you have skin redness or a rash that spreads and causes blistering and peeling. What is acetaminophen and hydrocodone? Acetaminophen and hydrocodone is a combination medicine used to relieve moderate to severe pain. Acetaminophen and hydrocodone contains an opioid medicine, and may be habit-forming. Acetaminophen and hydrocodone may also be used for purposes not listed in this medication guide. What should I discuss with my healthcare provider before taking acetaminophen and hydrocodone? You should not use this medicine if you are allergic to acetaminophen or hydrocodone, or if you have: ?? severe asthma or breathing problems; or ?? a blockage in your stomach or intestines. Tell your doctor if you have ever had: ?? breathing problems, sleep apnea; ?? liver disease; ?? a drug or alcohol addiction; ?? kidney disease; ?? a head injury or seizures; ?? urination problems; or ?? problems with your thyroid, pancreas, or gallbladder. If you use opioid medicine while you are , your baby could become dependent on the drug. This can cause life-threatening withdrawal symptoms in the baby after it is born. Babies born dependent on opioids may need medical treatment for several weeks. Ask a doctor before using opioid medicine if you are . Tell your doctor if you notice severe drowsiness or slow breathing in the nursing baby. How should I take acetaminophen and hydrocodone? Follow all directions on your prescription label. Never take this medicine in larger amounts, or for longer than prescribed. An overdose can damage your liver or cause . Tell your doctor if you feel an increased urge to use more of this medicine. Never share this medicine with another person, especially someone with a history of drug abuse or addiction. MISUSE CAN CAUSE ADDICTION, OVERDOSE, OR . Keep the medicine in a place where others cannot get to it. Selling or giving away this medicine is against the law. Measure liquid medicine carefully. Use the dosing syringe provided, or use a medicine dose-measuring device (not a kitchen spoon). If you need surgery or medical tests, tell the doctor ahead of time that you are using this medicine. You should not stop using this medicine suddenly. Follow your doctor's instructions about tapering your dose. Store at room temperature away from moisture and heat. Keep track of your medicine. You should be aware if anyone is using it improperly or without a prescription. Do not keep leftover opioid medication. Just one dose can cause in someone using this medicine accidentally or improperly. Ask your pharmacist where to locate a drug take-back disposal program. If there is no take-back program, flush the unused medicine down the toilet. What happens if I miss a dose? Since this medicine is used for pain, you are not likely to miss a dose. Skip any missed dose if it is almost time for your next dose. Do not use two doses at one time. What happens if I overdose? Seek emergency medical attention or call the Poison Help line at . An overdose of this medicine can be fatal, especially in a child or other person using the medicine without a prescription. Overdose symptoms may include nausea, vomiting, sweating, severe drowsiness, pinpoint pupils, slow breathing, or no breathing. Your doctor may recommend you get naloxone (a medicine to reverse an opioid overdose) and keep it with you at all times. A person caring for you can give the naloxone if you stop breathing or don't wake up. Your caregiver must still get emergency medical help and may need to perform CPR (cardiopulmonary resuscitation) on you while waiting for help to arrive. Anyone can buy naloxone from a pharmacy or local health department. Make sure any person caring for you knows where you keep naloxone and how to use it. What should I avoid while taking acetaminophen and hydrocodone? Avoid driving or operating machinery until you know how this medicine will affect you. Dizziness or drowsiness can cause falls, accidents, or severe injuries. Do not drink alcohol. Dangerous side effects or could occur. Ask a doctor or pharmacist before using any other medicine that may contain acetaminophen (sometimes abbreviated as APAP). Taking certain medications together can lead to a fatal overdose. What are the possible side effects of acetaminophen and hydrocodone? Get emergency medical help if you have signs of an allergic reaction: hives; difficulty breathing; swelling of your face, lips, tongue, or throat. Opioid medicine can slow or stop your breathing, and may occur. A person caring for you should give naloxone and/or seek emergency medical attention if you have slow breathing with long pauses, blue colored lips, or if you are hard to wake up. In rare cases, acetaminophen may cause a severe skin reaction that can be fatal. This could occur even if you have taken acetaminophen in the past and had no reaction. Stop taking this medicine and call your doctor right away if you have skin redness or a rash that spreads and causes blistering and peeling. Call your doctor at once if you have: ?? noisy breathing, sighing, shallow breathing, breathing that stops during sleep; ?? a light-headed feeling, like you might pass out; ?? liver problems--nausea, upper stomach pain, tiredness, loss of appetite, dark urine, matheus-colored stools, jaundice (yellowing of the skin or eyes); or ?? low cortisol levels-- nausea, vomiting, loss of appetite, dizziness, worsening tiredness or weakness. Seek medical attention right away if you have symptoms of serotonin syndrome, such as: agitation, hallucinations, fever, sweating, shivering, fast heart rate, muscle stiffness, twitching, loss of coordination, nausea, vomiting, or diarrhea. Serious side effects may be more likely in older adults and those who are malnourished or debilitated. Long-term use of opioid medication may affect fertility (ability to have children) in men or women. It is not known whether opioid effects on fertility are permanent. Common side effects include: ?? dizziness, drowsiness, feeling tired; ?? nausea, vomiting, stomach pain; ?? constipation; or ?? headache. This is not a complete list of side effects and others may occur. Call your doctor for medical advice about side effects. You may report side effects to FDA at 8-260-KZE-4000. What other drugs will affect acetaminophen and hydrocodone? You may have breathing problems or withdrawal symptoms if you start or stop taking certain other medicines. Tell your doctor if you also use an antibiotic, antifungal medication, heart or blood pressure medication, seizure medication, or medicine to treat HIV or hepatitis C. Opioid medication can interact with many other drugs and cause dangerous side effects or . Be sure your doctor knows if you also use: ?? cold or allergy medicines, bronchodilator asthma/COPD medication, or a diuretic ('water pill'); ?? medicines for motion sickness, irritable bowel syndrome, or overactive bladder; ?? other narcotic medications--opioid pain medicine or prescription cough medicine; ?? a sedative like Valium--diazepam, alprazolam, lorazepam, Xanax, Klonopin, Versed, and others; ?? drugs that make you sleepy or slow your breathing--a sleeping pill, muscle relaxer, medicine to treat mood disorders or mental illness; ?? drugs that affect serotonin levels in your body--a stimulant, or medicine for depression, Parkinson's disease, migraine headaches, serious infections, or nausea and vomiting. This list is not complete. Other drugs may affect acetaminophen and hydrocodone, including prescription and tuuc-clo-vlaooch medicines, vitamins, and herbal products. Not all possible interactions are listed here. Where can I get more information? Your doctor or pharmacist can provide more information about acetaminophen and hydrocodone. Remember, keep this and all other medicines out of the reach of children, never share your medicines with others, and use this medication only for the indication prescribed. Every effort has been made to ensure that the information provided by [employer] is accurate, up-to-date, and complete, but no guarantee is made to that effect. Drug information contained herein may be time sensitive. [employer] information has been compiled for use by healthcare practitioners and consumers in the [place] and therefore [employer] does not warrant that uses outside of the [place] are appropriate, unless specifically indicated otherwise. [employer] drug information does not endorse drugs, diagnose patients or recommend therapy. [employer] drug information is an informational resource designed to assist licensed healthcare practitioners in caring for their patients and/or to serve consumers viewing this service as a supplement to, and not a substitute for, the expertise, skill, knowledge and judgment of healthcare practitioners. The absence of a warning for a given drug or drug combination in no way should be construed to indicate that the drug or drug combination is safe, effective or appropriate for any given patient. [employer] does not assume any responsibility for any aspect of healthcare administered with the aid of information [employer] provides. The information contained herein is not intended to cover all possible uses, directions, precautions, warnings, drug interactions, allergic reactions, or adverse effects. If you have questions about the drugs you are taking, check with your doctor, nurse or pharmacist. Copyright 6720-8660 [facility] [employer]. Version: 16.. Revision Date: 08/30/2020. sulfamethoxazole and trimethoprim (oral/injection) (SUL fa meth OX a zole and trye METH oh prim) Bactrim, Bactrim DS, Bactrim I.V., Septra I.V., SMZ-TMP DS, Sulfatrim Pediatric What is the most important information I should know about sulfamethoxazole and trimethoprim? You should not use this medicine if you have severe liver disease, kidney disease that is not being monitored, anemia caused by folic acid deficiency, if you take dofetilide, or if you have had low platelets caused by using trimethoprim or a sulfa drug. You should not take sulfamethoxazole and trimethoprim if you are or . What is sulfamethoxazole and trimethoprim? Sulfamethoxazole and trimethoprim is a combination antibiotic used to treat ear infections, urinary tract infections, bronchitis, traveler's diarrhea, shigellosis, and Pneumocystis jiroveci pneumonia. Sulfamethoxazole and trimethoprim may also be used for purposes not listed in this medication guide. What should I discuss with my healthcare provider before using sulfamethoxazole and trimethoprim? You should not use this medicine if you are allergic to sulfamethoxazole or trimethoprim, or if you have: ?? severe liver disease; ?? kidney disease that is not being treated or monitored; ?? anemia (low red blood cells) caused by folic acid deficiency; ?? a history of low blood platelets after taking trimethoprim or any sulfa drug; or ?? if you take dofetilide (Tikosyn). Do not use sulfamethoxazole and trimethoprim if you are . This medicine could harm the unborn baby or cause defects. Use effective control, and tell your doctor if you become . Do not breastfeed while using this medicine. This medicine should not be given to a child younger than 2 months old. Tell your doctor if you have ever had: ?? kidney or liver disease; ?? a folate (folic acid) deficiency; ?? asthma or severe allergies; ?? a thyroid disorder; ?? HIV or AIDS; ?? malnourishment; ?? alcoholism; ?? high levels of potassium in your blood; ?? porphyria, or czjmjqa-7-vojdtzcsw dehydrogenase (G6PD) deficiency; or ?? if you use a blood thinner (such as warfarin) and you have routine 'INR' or prothrombin time tests. How should I use sulfamethoxazole and trimethoprim? This medicine is taken by mouth (oral) or given as an infusion into a vein (injection). Follow all directions on your prescription label and read all medication guides or instruction sheets. Use the medicine exactly as directed. Shake the oral suspension (liquid) before you measure a dose. Use the dosing syringe provided, or use a medicine dose-measuring device (not a kitchen spoon). A healthcare provider will give the first injection and may teach you how to properly use the medication by yourself. When using injections by yourself, be sure you understand how to properly mix and store the medicine. Ask your doctor or pharmacist if you don't understand all instructions. Drink plenty of fluids to prevent kidney stones while you are using this medicine. Sulfamethoxazole and trimethoprim doses are based on weight in children. Use only the recommended dose when giving this medicine to a child. Use this medicine for the full prescribed length of time, even if your symptoms quickly improve. Skipping doses can increase your risk of infection that is resistant to medication. This medicine will not treat a viral infection such as the flu or a common cold. You may need frequent medical tests. This medicine can affect the results of certain medical tests. Tell any doctor who treats you that you are using sulfamethoxazole and trimethoprim. Store at room temperature away from moisture, heat, and light. What happens if I miss a dose? Use the medicine as soon as you can, but skip the missed dose if it is almost time for your next dose. Do not use two doses at one time. What happens if I overdose? Seek emergency medical attention or call the Poison Help line at . Overdose symptoms may include loss of appetite, vomiting, fever, blood in your urine, yellowing of your skin or eyes, confusion, or loss of consciousness. What should I avoid while using sulfamethoxazole and trimethoprim? Antibiotic medicines can cause diarrhea, which may be a sign of a new infection. If you have diarrhea that is watery or bloody, call your doctor before using anti-diarrhea medicine. If you use the injection form of this medicine, do not eat or drink anything that contains propylene glycol (an ingredient in many processed foods, soft drinks, and medicines). Dangerous effects could occur. Sulfamethoxazole and trimethoprim could make you sunburn more easily. Avoid sunlight or tanning beds. Wear protective clothing and use sunscreen (SPF 30 or higher) when you are outdoors. What are the possible side effects of sulfamethoxazole and trimethoprim? Get emergency medical help if you have signs of an allergic reaction (hives, cough, shortness of breath, swelling in your face or throat) or a severe skin reaction (fever, sore throat, burning eyes, skin pain, red or purple skin rash with blistering and peeling). Seek medical treatment if you have a serious drug reaction that can affect many parts of your body. Symptoms may include: skin rash, fever, swollen glands, muscle aches, severe weakness, unusual bruising, or yellowing of your skin or eyes. Call your doctor at once if you have: ?? severe stomach pain, diarrhea that is watery or bloody (even if it occurs months after your last dose); ?? a skin rash, no matter how mild; ?? yellowing of your skin or eyes; ?? a seizure; ?? new or unusual joint pain; ?? increased or decreased urination; ?? swelling, bruising, or irritation around the IV needle; ?? increased thirst, dry mouth, fruity breath odor; ?? an electrolyte imbalance--headache, confusion, weakness, slurred speech, tingly feeling, chest pain, irregular heartbeats, loss of coordination or movement, feeling unsteady, vomiting; or ?? low blood cell counts--fever, chills, mouth sores, skin sores, easy bruising, unusual bleeding, pale skin, cold hands and feet, feeling light-headed or short of breath. Common side effects may include: ?? nausea, vomiting, loss of appetite; or ?? skin rash. This is not a complete list of side effects and others may occur. Call your doctor for medical advice about side effects. You may report side effects to FDA at 0-954-PAO-4546. What other drugs will affect sulfamethoxazole and trimethoprim? You may need more frequent check- ups or medical tests if you also use medicine to treat depression, diabetes, seizures, or HIV. Tell your doctor about all your current medicines. Many drugs can affect sulfamethoxazole and trimethoprim, especially: ?? amantadine, cyclosporine, indomethacin, leucovorin, methotrexate, pyrimethamine; ?? an 'EDWIGE inhibitor' heart or blood presure medication (benazepril, enalapril, lisinopril, quinapril, ramipril, and others); or ?? a diuretic or 'water pill' (chlorthalidone, hydrochlorothiazide, and others). This list is not complete and many other drugs may affect sulfamethoxazole and trimethoprim. This includes prescription and kwms-ekp-vnnykpv medicines, vitamins, and herbal products. Not all possible drug interactions are listed here. Where can I get more information? Your pharmacist can provide more information about sulfamethoxazole and trimethoprim. Remember, keep this and all other medicines out of the reach of children, never share your medicines with others, and use this medication only for the indication prescribed. Every effort has been made to ensure that the information provided by [employer] is accurate, up-to-date, and complete, but no guarantee is made to that effect. Drug information contained herein may be time sensitive. [employer] information has been compiled for use by healthcare practitioners and consumers in the [place] and therefore [employer] does not warrant that uses outside of the [place] are appropriate, unless specifically indicated otherwise. [employer]'s drug information does not endorse drugs, diagnose patients or recommend therapy. [facility]'s drug information is an informational resource designed to assist licensed healthcare practitioners in caring for their patients and/or to serve consumers viewing this service as a supplement to, and not a substitute for, the expertise, skill, knowledge and judgment of healthcare practitioners. The absence of a warning for a given drug or drug combination in no way should be construed to indicate that the drug or drug combination is safe, effective or appropriate for any given patient. [facility] does not assume any responsibility for any aspect of healthcare administered with the aid of information [facility] provides. The information contained herein is not intended to cover all possible uses, directions, precautions, warnings, drug interactions, allergic reactions, or adverse effects. If you have questions about the drugs you are taking, check with your doctor, nurse or pharmacist. Copyright [id number] [facility] [employer]. Version: 05.18. Revision Date: 05/10/2020. docusate (oral/rectal) (DOK ue sate) Colace, Diocto, Doc-Q-Lace, Docu, Doculase, Docusil, Docusoft S, DocuSol, Dulcolax Stool Softener, Enemeez Mini, Phil-Tin, Pedia-Lax Stool Softener, Amos Stool Softener, Promolaxin, Silace, Surfak Stool Softener, Pietro-Q-Lax What is the most important information I should know about docusate? You should not use docusate if you also use mineral oil, unless your doctor tells you to. What is docusate? Docusate is a stool softener that makes bowel movements softer and easier to pass. Docusate is used to relieve occasional constipation (irregularity). There are many brands and forms of docusate available. Not all brands are listed on this leaflet. Docusate may also be used for purposes not listed in this medication guide. What should I discuss with my healthcare provider before using docusate? You should not use docusate if you are allergic to it. Ask a doctor or pharmacist if this medicine is safe to use if you have: ?? stomach pain; ?? nausea; ?? vomiting; or ?? a sudden change in bowel habits that lasts over 2 weeks. Ask a doctor before using this medicine if you are or . Do not give this medicine to a child without medical advice. How should I use docusate? Use exactly as directed on the label, or as prescribed by your doctor. Drink plenty of liquids while you are using docusate. Measure liquid medicine carefully. Use the dosing syringe provided, or use a medicine dose-measuring device (not a kitchen spoon). Do not take the rectal enema by mouth. Rectal medicine is for use only in the rectum. Wash your hands before and after using the enema. To use the enema, lie on your left side with your left leg extended and your right leg slightly bent. Remove the cap from the applicator tip and gently insert the tip into your rectum. Slowly squeeze the bottle to empty the contents into the rectum. After using the enema, lie down on your left side for at least 30 minutes to allow the liquid to distribute throughout your intestines. Avoid using the bathroom, and hold in the enema at least 1 hour, or all night if possible. Read and carefully follow any Instructions for Use provided with your medicine. Ask your doctor or pharmacist if you do not understand these instructions. Docusate generally produces bowel movement in 12 to 72 hours. Call your doctor if your symptoms do not improve after 72 hours. You should not use docusate for longer than 1 week, unless your doctor tells you to. Store at room temperature away from moisture and heat. Do not freeze liquid medicine. What happens if I miss a dose? Since docusate is used when needed, you may not be on a dosing schedule. Skip any missed dose if it's almost time for your next dose. Do not use two doses at one time. What happens if I overdose? Seek emergency medical attention or call the Poison Help line at . What should I avoid while using docusate? Avoid using mineral oil, unless told to do so by a doctor. What are the possible side effects of docusate? Get emergency medical help if you have signs of an allergic reaction: hives; difficult breathing; swelling of your face, lips, tongue, or throat. Stop using docusate and call your doctor at once if you have: ?? rectal bleeding or irritation; or ?? no bowel movement after 72 hours. Less serious side effects may be more likely, and you may have none at all. This is not a complete list of side effects and others may occur. Call your doctor for medical advice about side effects. You may report side effects to FDA at 9-798-DOK-6981. What other drugs will affect docusate? Other drugs may affect docusate, including prescription and uava-lui-eeujaeo medicines, vitamins, and herbal products. Tell your doctor about all your current medicines and any medicine you start or stop using. Where can I get more information? Your pharmacist can provide more information about docusate. Remember, keep this and all other medicines out of the reach of children, never share your medicines with others, and use this medication only for the indication prescribed. Every effort has been made to ensure that the information provided by [employer] is accurate, up-to-date, and complete, but no guarantee is made to that effect. Drug information contained herein may be time sensitive. [employer] information has been compiled for use by healthcare practitioners and consumers in the [place] and therefore [employer] does not warrant that uses outside of the [place] are appropriate, unless specifically indicated otherwise. [employer] drug information does not endorse drugs, diagnose patients or recommend therapy. [employer] drug information is an informational resource designed to assist licensed healthcare practitioners in caring for their patients and/or to serve consumers viewing this service as a supplement to, and not a substitute for, the expertise, skill, knowledge and judgment of healthcare practitioners. The absence of a warning for a given drug or drug combination in no way should be construed to indicate that the drug or drug combination is safe, effective or appropriate for any given patient. [employer] does not assume any responsibility for any aspect of healthcare administered with the aid of information [employer] provides. The information contained herein is not intended to cover all possible uses, directions, precautions, warnings, drug interactions, allergic reactions, or adverse effects. If you have questions about the drugs you are taking, check with your doctor, nurse or pharmacist. Copyright [id number] [employer] Version: 4.01. Revision Date: 02/22/2019. Emergency Awareness and Preventative Care STROKE is an EMERGENCY Every Minute Counts Act FAST and Check for these signs: FACE Does the face look uneven? ARM Does one arm drift down? SPEECH Does their speech sound strange? TIME Call at any sign of stroke Stroke Risk Factors Atrial Fibrillation (irregular heartbeat) Diabetes Family history of stroke Heart Disease Heavy alcohol use High Blood Pressure High Cholesterol Physical inactivity and obesity Smoking Cigarette Smoking The facts are clear, cigarette smoking will shorten your life. Smoking can cause many illnesses along the way. As a healthcare provider, we recommend that you stop smoking. Assistance with quitting is available by contacting 0-591-NRZI-NOW. This is a free resource providing counseling, support, and referral. Or you may contact your personal physician. [place] Suicide Prevention Lifeline: The National Suicide Prevention Lifeline is a national network of local crisis centers that provides free and confidential emotional support to people in suicidal crisis or emotional distress 24 hours a day, 7 days a week. Don't Wait! Stop a Heart Attack Before it Starts What is a heart attack? A heart attack is damage or to a part of the heart from severely decreased or lack of blood flow to the heart. Over time, arteries can become narrow from the buildup of fat and cholesterol, which is called plaque. The plaque can rupture causing a blood clot to form. When the blood clot forms, the artery can become severely narrowed or completely blocked, causing a heart attack. Heart attack is the leading cause of in the [place]. 85% of muscle damage occurs within the first 2 hours. Delay in the recognition of heart attack symptoms increases the chances of . Know the early symptoms of a heart attack: Nausea Feeling of fullness in chest Jaw Pain Pain that travels down one or both arms Fatigue/being tired Anxiety Back Pain Chest pressure, squeezing, or discomfort Shortness of breath Sweating, or a cold sweat Feeling of impending doom There are unusual signs of a heart attack, too! Women, the elderly, and diabetics may present with atypical symptoms: Fainting/dizziness Weakness Confusion Risk Factors for a Heart Attack Some heart disease risk factors, such as age and family history, cannot be changed. Others, like smoking and lack of exercise, can be changed. Smoking High Cholesterol High Blood Pressure Family History Obesity Age Gender (Males are at higher risk) Lack of Exercise Diabetes Diet Stress Excessive Alcohol Intake If you or someone you know is experiencing the signs and symptoms of a heart attack, DON???T DELAY. Call immediately and seek help. If someone collapses, perform CPR! Do not attempt to drive if you are having symptoms of heart attack. Hands-Only CPR Why Hands-Only CPR? Hands-Only CPR has been shown to be as effective as conventional CPR for cardiac arrests that occur outside of a hospital. Survival depends on immediately receiving CPR from someone nearby. How do you perform Hands-Only CPR? There are two easy steps: Call 9-1-1 if you see a teen or adult collapse Push hard and fast in the center of the chest at a beat of 100 beats per minute. Save a life! 4 WAYS TO GET AHEAD OF SEPSIS SEPSIS is a MEDICAL EMERGENCY. Time matters! Infections put you and your family at risk for a life-threatening condition called sepsis. Sepsis is the body's extreme response to an infection. It is life-threatening, and without timely treatment, sepsis can rapidly lead to tissue damage, organ failure, and . Sepsis happens when an infection you already have-in your skin, lungs, urinary tract or somewhere else-triggers a chain reaction throughout your body. 1 PREVENT INFECTIONS Take good care of chronic conditions. Talk to your doctor about getting the recommended vaccines. 2 PRACTICE GOOD HYGIENE Wash your hands frequently. Keep cuts or open sores clean and covered until they are healed. 3 KNOW THE SYMPTOMS Confusion or disorientation Shortness of breath High heart rate Fever, shivering, or feeling very cold Extreme pain or discomfort Clammy or sweaty skin 4 ACT FAST Get medical care IMMEDIATELY if you suspect sepsis or if you have an infection that is not getting better or is getting worse. To learn more about sepsis and how to prevent infections, visit www.cdc.gov/sepsis. Test Results Laboratory or Other Results This Visit (last charted value for your 09/18/2020 visit) Microbiology 09/14/2020 2:00 PM SARS-CoV-2 (COVID19 PCR): Negative Patient Name:THA RAMIREZ I have received this information and was given the opportunity to ask questions. Patient/Senior Production Manager Name: Patient/Senior Production Manager Signature: Relationship to Patient: Clinician/Hospital Senior Production Manager Signature: Date: documented in this encounter Plan of Treatment Upcoming Encounters Date Type Department Care Team (Late st Contact Info) Description 03/10/2025 9:45 AM EDT Office Visit [facility] Electrophysiology [address] [phone] [place] [address] [place] [address] [address] [place] [address] documented as of this encounter Visit Diagnoses Not on filedocumented in this encounter Care Teams High School Foreign Language Teacher Relationship Specialty Start Date End Date Roc Bonilla MD [address] [place] [address] PCP - General General Internal Medicine 08/07/22 Marisa Coy APRN [address] [facility] [address] [place] [address] Cardiology 10/09/23 documented as of this encounter
--- OUTSIDE RECORDS SUMMARY | 2025-02-21 09:58 | XMS_ITS | Encounter Summary ---
Author Organization [employer] ([place], [place], [place], [place]) Address [address] [place] [address] Care Team Providers Care Typewriter Aligner Name Role Phone Roc Bonilla MD Primary Care Provider [phone] Marisa Coy METAL WINDOW FRAME MAKER Unavailable [phone] Reason for Visit * Reason Comments Medication Refill Encounter Details Date Type Department Care Team (Late st Contact Info) Description 10/27/2023 Refill [facility] Cardiology [address] [phone] Angel Silver, METAL WINDOW FRAME MAKER [address] [facility] [address] [place] [address] Essential (primary) hypertension; Ventricular premature depolarization Social History Tobacco Use Types Packs/Day Years [...] Date Ajit rded Speak language other than Sammarinese at home Not on file 08/28/2023 Want [...] on file documented as of this encounter Plan of Treatment Upcoming Encounters Date Type Department Care Team (Late st Contact Info) Description 03/10/2025 9:45 AM EDT Office Visit [facility] Electrophysiology [address] [place] [address] Jorge Luis Ervin MD [address] [facility] [address] [place], [place] [id number] documented as of this encounter Visit Diagnoses Diagnosis Essential (primary) hypertension Unspecified essential hypertension Ventricular premature depolarization Other premature beats documented in this encounter Care Teams Typewriter Aligner Relationship Specialty Start Date End Date Roc Bonilla MD [address] [place] [address] PCP - General General Internal Medicine 08/07/22 Marisa Coy, METAL WINDOW FRAME MAKER [address] [facility] [address] [place], [place] [id number] Cardiology 10/09/23 documented as of this encounter
--- OUTSIDE RECORDS SUMMARY | 2025-02-21 09:58 | XMS_ITS | Encounter Summary ---
Author Organization [employer] ([place], [place], [place], [place]) Address [address] [place] [address] Care Team Providers Care Chief Librarian Work With Blind Name Role Phone Roc Bonilla MD Primary Care Provider [phone] Marisa Coy FEATHER EDGER Unavailable [phone] Encounter Details Date Type Department Care Team (Late st Contact Info) Description 09/18/2020 Transcribed Document [facility] [place] [address] [place] [address] Alexander Lowe MD [address] [place], [place] [address] Social History Tobacco Use Types Packs/Day Years Used Date Smoking Tobacco: Never Assessed Sex and Gender Information Value Date Recorded Sex Assigned at Not on file Legal Sex Male 4:36 PM CDT Gender Identity Not on file Sexual Orientation Not on file documented as of this encounter Miscellaneous Notes * Cerner Conversion Note - Alexander Lowe MD - 09/18/2020 10:02 AM TRAY SERVER Patient Education Materials Follows: General Anesthesia, Adult, Care After This sheet [...] activities are safe for you. ??? Take edze-iug-gtfoqmg and prescription medicines only as told by [...] 11/10/2001 Document Revised: 08/07/2018 Document Reviewed: 03/20/2018 [employer] Patient Education ? 2020 [employer]. Nephrology Lithotripsy, Care After This sheet gives you [...] may continue to pass for up to 4?8 weeks. ? If you have severe pain [...] these instructions at home: Medicines ??? Take pibv-hqs-osquxvm and prescription medicines only as told by [...] ??? Most people can resume normal activities 1?2 days after the procedure. Ask your health [...] ??? Most people can resume normal activities 1?2 days after the procedure. Ask your health [...] 08/23/2008 Document Revised: 11/15/2019 Document Reviewed: 06/25/2017 [employer] Patient Education ? 2019 [employer] Urology Dietary Guidelines to Help Prevent Kidney Stones [...] calcium at each meal. Foods that contain 200?500 mg of calcium per serving include: ? 8 oz (237 ml) of milk, fortified nondairy milk, and fortified fruit juice. ? 8 oz (237 ml) of kefir, yogurt, and soy yogurt. ? 4 oz (118 ml) of tofu. ? 1 oz of cheese. ? 1 cup (300 g) of dried figs. ? 1 cup (91 g) of cooked broccoli. ? 1?3 oz can of sardines or mackerel. ??? [...] Rhubarb. ? Beets. ? Potato chips and swedish fries. ? Nuts. ??? If you regularly take a diuretic medicine, make sure to eat at least 1?2 fruits or vegetables high in potassium each day. These include: ? Avocado. ? Banana. ? [place], prune, carrot, or tomato juice. ? Baked [...] of beer, 5 oz of wine, or 1? oz of hard liquor. ??? Lose weight [...] Casseroles. Pizza. Lasagna. Frozen meals. Potato chips. Occitan fries. Summary ??? You can reduce your [...] 11/29/2011 Document Revised: 11/24/2019 Document Reviewed: 07/15/2017 [employer] Patient Education ? 2019 [employer] documented in this encounter Plan of Treatment Upcoming Encounters Date Type Department Care Team (Late st Contact Info) Description 03/10/2025 9:45 AM EDT Office Visit [facility] Electrophysiology [address] [place] [address] Jorge Luis Ervin MD [address] [facility] [address] [place] [address] documented as of this encounter Visit Diagnoses Not on filedocumented in this encounter Care Teams Chief Librarian Work With Blind Relationship Specialty Start Date End Date Roc Bonilla MD [address] [place] [phone] PCP - General General Internal Medicine 08/07/22 Marisa Coy, FEATHER EDGER 14[address] [facility] [address] [address] Cardiology 10/09/23 documented as of this encounter
--- OUTSIDE RECORDS SUMMARY | 2025-02-21 09:58 | XMS_ITS | Encounter Summary ---
Author Organization [employer] ([place], [place], [place], [place]) Address [address] [place] [address] Care Team Providers Care Handbell Choir Director Name Role Phone Roc Bonilla MD Primary Care Provider [phone] Marisa Coy APRN Unavailable [phone] Encounter Details Date Type Department Care Team (Late st Contact Info) Description 09/18/2020 Transcribed Document [facility] [place] [address] [place] [address] ProviderAlexander MD [address] [place], [place] [address] Social History Tobacco Use Types Packs/Day Years Used Date Smoking Tobacco: Never Assessed Sex and Gender Information Value Date Recorded Sex Assigned at Not on file Legal Sex Male 4:36 PM CDT Gender Identity Not on file Sexual Orientation Not on file documented as of this encounter Miscellaneous Notes * Cerner Conversion Note - Alexander ProviderMD - 09/18/2020 7:45 AM PARKING ENFORCEMENT TECHNICIAN [facility] Main OR PostOp Summary Primary Physician: JENNIFER CARRANZA JR, MD-URO Finalized Date/Time: 09/18/20 11:23:49 Pt. Name: THA RAMIREZ D.O.B./Sex: 1955 Male Med Rec #: [id number] Physician: JENNIFER CARRANZA JR, MD-URO Financial #: [id number] Pt. Type: O Room/Bed: /2 Admit/Disch: 09/18/20 05:36:00 - Institution: [facility] Main OR PostOp Case Times Entry 1 In PACU II 09/18/20 09:37:00 Ready for PACU II 09/18/20 11:15:00 Discharge Discharge from PACU 09/18/20 11:15:00 II Last Modified By: Jennifer Davis, KINGS 09/18/20 11:23:48 [facility] Main OR PostOp Case Times Audit 09/18/20 11:23:48 Investigations Chief: [id number] Modifier: [id number] <+> 1 Ready for PACU II Discharge <+> 1 Discharge from PACU II Finalized By: Jennifer Davis, RN Document Signatures Signed By: Jennifer Davis RN 09/18/20 11:23 Electronically signed by Brent [facility] Conversion Reservoir Engineering Advisor Cerner at 12/02/2022 8:36 AM CDT documented in this encounter Plan of Treatment Upcoming Encounters Date Type Department Care Team (Late st Contact Info) Description 03/10/2025 9:45 AM EDT Office Visit [facility] Electrophysiology [address] [place] [phone] Jorge Luis Ervin MD [address] [facility] [address] [place] [address] documented as of this encounter Visit Diagnoses Not on filedocumented in this encounter Care Teams Handbell Choir Director Relationship Specialty Start Date End Date Roc Bonilla MD [address] [place] [address] PCP - General General Internal Medicine 08/07/22 Marisa Coy, HARNESS FITTER [address] [facility] [address] [place], [place] [address] Cardiology 10/09/23 documented as of this encounter
--- OUTSIDE RECORDS SUMMARY | 2025-02-21 09:58 | XMS_ITS | Encounter Summary ---
Author Organization [employer] ([place], [place], [place], [place]) Address [address] [place] [address] Care Team Providers Care Farmworker Diversified Crops Name Role Phone Roc Bonilla MD Primary Care Provider [phone] Marisa Coy GREY INSPECTOR Unavailable [phone] Encounter Details Date Type Department Care Team (Late st Contact Info) Description 09/15/2020 Transcribed Document [facility] [place] Family Medicine [address] [place] [address] Alexander Lowe MD [address] [place], [place] [address] Social History Tobacco Use Types Packs/Day Years Used Date Smoking Tobacco: Never Assessed Sex and Gender Information Value Date Recorded Sex Assigned at Not on file Legal Sex Male 4:36 PM CDT Gender Identity Not on file Sexual Orientation Not on file documented as of this encounter Miscellaneous Notes * Cerner Conversion Note - Alexander ProviderMD - 09/15/2020 6:33 PM COTTON BALER Pre Procedure Adult Entered On: 09/15/2020 18:46 EST Performed On: 09/15/2020 18:33 EST by Lupe Altamirano Rn Height and Weight, Clinical Dosing Height Source : Measured Height Entry Format : [place] Height, Feet : 6 ft(Converted to: 183 cm, 72 Inch) Height, Inches : 1 Inch(Converted to: 0 ft 1 Inch, 2.54 cm) Clinical Height : 185.42 cm Weight Source : Standing scale Weight Entry Format : [place] Clinical Dosing Weight : 95.45 kg Weight, Pounds : 210 lb Body Surface Area (BSA) : 2.2 m2 Body Mass Index : 27.8 kg/m2 (HI) [place] Body Weight : 79 kg Lupe Altamirano Rn - 09/15/2020 18:33 EST Health Histories Smoking Status : Former smoker, quit more than 30 days ago Smokeless Tobacco Status : Former smokeless tobacco user, quit more than 30 days ago Implant/Device Type, Floor Polisher and Model : 10 heart stents possibly lung jeremie Lupe Altamirano Rn - 09/15/2020 18:33 EST Social History (As Of: 09/15/2020 18:46:42 EST) Tobacco: Use in Last 12 Months: Cigarettes. Smoking Status Former smoker. Years of Use: 35. Packs/Tins Daily: 3. Last Used: Quit approx 2005. (Last Updated: 06/24/2014 16:49:42 EST by JENNIFER SANCHEZ RN) Former smoker, quit more than 30 days ago Smoking Status. Former smokeless tobacco user, quit more than 30 days ago Smokeless Tobacco Status. (Last Updated: 09/15/2020 18:34:29 EST by Lupe Altamirano Rn) Alcohol: Alcohol Use History Yes. Use in Last 12 Months: Yes. Alcohol Use Frequency Socially. (Last Updated: 09/15/2020 18:35:16 EST by Lupe Altamirano Rn) Substance Abuse: Drug Use Hx: Yes. Marijuana/Hashish Recreational Drug Type. (Last Updated: 09/15/2020 18:35:29 EST by Lupe Altamirano Rn) Infectious Disease History Has the patient ever been tested for COVID-19? : Yes, Patient stated results pending Where was the COVID-19 Testing completed? : [facility] Date of COVID-19 test known? : Yes Date of COVID-19 Test : 09/14/2020 EST Does patient have symptoms of COVID-19? : No COVID19 Screening : No Experiencing Infectious Disease Symptoms : No symptoms Physical contact outside US in the last 30 days : No Infectious Disease History : Chicken pox/Shingles Tuberculosis Symptoms : None Lupe Altamirano Rn - 09/15/2020 18:33 EST COVID19 PreProcedure Screening Is this an Emergent or Add on Procedure? : No Date PreProcedure COVID-19 test known? : Yes Date of PreProcedure COVID-19 : 09/14/2020 EST Has patient been isolated since the test : No Exposed to COVID19 symptoms since test? : No Lupe Altamirano Rn - 09/15/2020 18:33 EST Anesthesia/Transfusion History Family History of Anesthesia Reaction : No prior transfusion(s) Blood Transfusion Acceptable to Patient : Yes Transfusion History : Prior anesthesia without reaction Family History of Anesthesia Reaction : None Lupe Altamirano Rn - 09/15/2020 18:33 EST Functional Assessment Living Situation : Home Current Home Treatments : None Lupe Altamirano Rn - 09/15/2020 18:33 EST [place] Suicide Severity Rating Scale (C-SSRS) CSSRS Past Month Wish to be : No CSSRS Past Month Suicidal Thoughts : No CSSRS Lifetime Suicide Behavior : No Suicide Severity Rating Score : 0 Suicide Severity Rating : No Additional Care Required at this time Lupe Altamirano Rn - 09/15/2020 18:33 EST Psychosocial History Chronic/Terminal Illness w/Freq Visits : No Do You Have a History of the Following? : Anxiety Currently in Unsafe Situation : No Lupe Altamirano Rn - 09/15/2020 18:33 EST Advance Directive Patient has Advance Directive *Q : Yes, Advance Directive on file Advance Directive Type : Living will Copy Advance Directive Verified/on Chart : No Lupe Altamirano Rn - 09/15/2020 18:33 EST General Info Preferred Name : Antonio Legal Guardian : Carola Support Person/Patient Production Machine Operator : Yes Support Person/Pt Rep Name : shady [id number] Want Family/Rep/Phys Notified of Admit : No Emergency Contact #1 : shady Emergency Contact #1 Emergency Contact #1 Relationship : Emergency Contact #2 : Tiffanie Tarik Emergency Contact #2 Emergency Contact #2 Relationship : sister Primary Language : Moldovan Communication Barrier : None Assurance Sourcing Manager Needed : No Lupe Altamirano Rn - 09/15/2020 18:33 EST Sleep Apnea Risk Assmt BiPAP/CPAP Ordered for Home Use : No Hx of Obstructive Sleep Apnea Diagnosis : Yes Age over 50 Years Old : Yes Gender Male : Yes Lupe Altamirano Rn - 09/15/2020 18:33 EST Dhruv Scale Dhruv Sensory Perception : Slightly limited Dhruv Moisture : Rarely moist Dhruv Activity : Walks occasionally Dhruv Mobility : Slightly limited Dhruv Nutrition : Excellent Dhruv Friction and Shear : Potential problem Dhruv Score : 19 Lupe Altamirano Rn - 09/15/2020 18:33 EST Fall Risk Scales ABCs Fall Injury Risk Identification : None ALVAREZ Hx Falls Immediate/Within 3 Months : No Alvarez Secondary Diagnosis : No ALVAREZ Use of Ambulatory Aid : None ALVAREZ IV Therapy or IV Access : No Lupe Altamirano Rn - 09/15/2020 18:33 EST Electronically signed by [facility] Conversion Administrative Coordinator Cerner at 12/02/2022 8:21 AM CDT documented in this encounter Plan of Treatment Upcoming Encounters Date Type Department Care Team (Late st Contact Info) Description 03/10/2025 9:45 AM EDT Office Visit [facility] Electrophysiology [address] [place] [phone] Jorge Luis Ervin MD [address] [facility] [address] [place] [address] documented as of this encounter Visit Diagnoses Not on filedocumented in this encounter Care Teams Farmworker Diversified Crops Relationship Specialty Start Date End Date Roc Bonilla MD [address] [place] [address] PCP - General General Internal Medicine 08/07/22 Marisa Coy, GREY INSPECTOR [address] [facility] [address] [place] [address] Cardiology 10/09/23 documented as of this encounter
--- OUTSIDE RECORDS SUMMARY | 2025-02-21 09:58 | XMS_ITS | Encounter Summary ---
Author Organization [employer] ([place], [place], [place], [place]) Address [address] [place] [address] Care Team Providers Care Pump Installer Name Role Phone Roc Bonilla MD Primary Care Provider [phone] Marisa Coy MONOTYPE SETTER Unavailable [phone] Encounter Details Date Type Department Care Team (Late st Contact Info) Description 09/15/[address] [facility] [place] Family Medicine [address] [place] [address] ProviderAlexander MD [address] [place], [place] [address] Social History Tobacco Use Types Packs/Day Years Used Date Smoking Tobacco: Never Assessed Sex and Gender Information Value Date Recorded Sex Assigned at Not on file Legal Sex Male 4:36 PM CDT Gender Identity Not on file Sexual Orientation Not on file documented as of this encounter Miscellaneous Notes * Cerner Conversion Note - Alexander ProviderMD - 09/15/2020 6:46 PM PHYSICIAN VICE PRESIDENT PAT Adult Entered On: 09/15/2020 18:47 EST Performed On: 09/15/2020 18:46 EST by Lupe Altamirano Rn Pain Assessment Pain Assessment : Initial assessment Pain Scale Goal : 4 Pain Scale Used : 0-10 Scale Assume Pain Present : Yes Quality : Burning Pain Radiation : No ONOFRE POLANCO RN - 09/18/2020 6:24 EST Height and Weight, Clinical Dosing Height Source : Measured Height Entry Format : [place] Height, Feet : 6 ft(Converted to: 183 cm, 72 Inch) Height, Inches : 1 Inch(Converted to: 0 ft 1 Inch, 2.54 cm) Clinical Height : 185.42 cm Weight Source : Standing scale Weight Entry Format : [place] Clinical [facility] Weight : 95.45 kg Weight, Pounds : 210 lb Body Surface Area (BSA) : 2.2 m2 Body Mass Index : 27.8 kg/m2 (HI) [place] Body Weight : 79 kg Lupe Altamirano Rn - 09/15/2020 18:46 EST Health Histories Smoking Status : Former smoker, quit more than 30 days ago Smokeless Tobacco Status : Former smokeless tobacco user, quit more than 30 days ago Implant/Device Type, Service Administrator and Model : 10 heart stents possibly lung jeremie Lpue Altamirano Rn - 09/15/2020 18:46 EST Social History (As Of: 09/15/2020 18:47:51 EST) Tobacco: Use in Last 12 Months: [...] : None Lupe Altamirano Rn - 09/15/2020 18:46 EST COVID19 PreProcedure Screening Is this an Emergent or Add on Procedure? : No Date PreProcedure COVID-19 test known? : Yes Date of PreProcedure COVID-19 : 09/14/2020 EST Has patient been isolated since the test : No Exposed to COVID19 symptoms since test? : No Lupe Altamirano Rn - 09/15/2020 18:46 EST Anesthesia/Transfusion History Family History of Anesthesia Reaction : No prior transfusion(s) Blood Transfusion Acceptable to Patient : Yes Transfusion History : Prior anesthesia without reaction Family History of Anesthesia Reaction : None Lupe Altamirano Rn - 09/15/2020 18:46 EST Advance Directive Patient has Advance Directive *Q : Yes, Advance Directive on file Advance Directive Type : Living will Copy Advance Directive Verified/on Chart : No Lupe Altamirano Rn - 09/15/2020 18:46 EST [place] Suicide Severity Rating Scale (C-SSRS) CSSRS Past Month Wish to be : No CSSRS Past Month Suicidal Thoughts : No CSSRS Lifetime Suicide Behavior : No Suicide Severity Rating Score : 0 Suicide Severity Rating : No Additional Care Required at this time Lupe Altamirano Rn - 09/15/2020 18:46 EST Psychosocial History Chronic/Terminal Illness w/Freq Visits : No Do You Have a History of the Following? : Anxiety Currently in Unsafe Situation : No Lupe Altamirano Rn - 09/15/2020 18:46 EST General Info Preferred Name : Antonio Legal Guardian : No Support Person/Patient Executive Legal Secretary : Yes Support Person/Pt Rep Name : shady [id number] Want Family/Rep/Phys Notified of Admit : No Emergency Contact #1 : shady Emergency Contact #1 Emergency Contact #1 Relationship : Emergency Contact #2 : Tiffanie Tarik Emergency Contact #2 Emergency Contact #2 Relationship : sister Primary Language : Emirati Communication Barrier : None Coconut Boiler Needed : No Lupe Altamirano Rn - 09/15/2020 18:46 EST Dhruv Scale Dhruv Sensory Perception : Slightly limited Dhruv Moisture : Rarely moist Dhruv Activity : Walks occasionally Dhruv Mobility : Slightly limited Dhruv Nutrition : Adequate Dhruv Friction and Shear : Potential problem Dhruv Score : 18 Lupe Altamirano Rn - 09/15/2020 18:46 EST Sleep Apnea Risk Assmt BiPAP/CPAP Ordered for Home Use : No Hx of Obstructive Sleep Apnea Diagnosis : Yes Age over 50 Years Old : Yes Gender Male : Yes Lupe Altamirano Rn - 09/15/2020 18:46 EST Pain Scale Intensity : 4 ONOFRE POLANCO RN - 09/18/2020 6:24 EST Image 4 - Images currently included in the form version of this document have not been included in the text rendition version of the form. Electronically signed by Brent [facility] Conversion Salon Assistant Cerner at 12/02/2022 8:27 AM CDT documented in this encounter Plan of Treatment Upcoming Encounters Date Type Department Care Team (Late st Contact Info) Description 03/10/2025 9:45 AM EDT Office Visit [facility] Electrophysiology [address] [place] [address] Jorge Luis Ervin MD [address] [facility] [address] [place] [address] documented as of this encounter Visit Diagnoses Not on filedocumented in this encounter Care Teams Pump Installer Relationship Specialty Start Date End Date Roc Bonilla MD [address] [place] [address] PCP - General General Internal Medicine 08/07/22 Marisa Coy APRN [address] [facility] [address] [place] [address] Cardiology 10/09/23 documented as of this encounter
--- OUTSIDE RECORDS SUMMARY | 2025-02-21 09:58 | XMS_ITS | Data Portability ---
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 Plan of Treatment Reminders Order Date Submit Date Provider Last Modified By Organization Details Last Modified Time Details Appointments None recorded. Lab urinalysis panel, auto 2020 [facility], [address], [address], [place], [address], 20:12:22 urinalysis panel, auto 2020 [facility], [address], [address], [place], [address], 18:38:10 unlisted lab - urology custom panel 2020 [facility], [address] [place] [address], [address], 18:38:10 PTH (parathyro id hormone), intact + calcium, serum or plasma 2020 [facility], [address] [place] [address], [address], 18:38:10 kidney stone analysis 2020 [facility], [address], [place], [address], 01:16:38 urinalysis panel, auto 2020 [facility], [address], [address], [place], [address], 12:19:52 Referral None recorded. Procedures None recorded. Surgeries extra corporeal shock wave lithotrips y (SURG) 2020 [facility] ([facility]), [address] , [place], [address], 10:03:05 cystoureth roscopy, with insertion of ureteral stent (SURG) 2020 [facility] ([facility]), [address], [place], [address], 14:19:57 Imaging US, scrotum - Spoke to PABLO 09/15/2020 arrive 10:00 2020 [facility] ([facility]), [address], [place], [address], 15:00:15 Medication Orders sildenafil 100 mg tablet 2020 [facility] [place], [address], 07:25:41 Patient TargetsNo targets recorded. Patient Instructions Encounter Date Encounter Id Patient Instructions Last Modified By Organization Details Last Modified Time 09/14/2020 [id number] varicocele repai r: before your surgery [facility] Not available 09/15/2020 12:19:51 kidney stone: ca re instructions [facility] Not available 09/15/2020 12:19:51 learning about d iet for kidney stone prevention [facility] Not available 09/15/2020 12:19:52 Plan for shockwa ve lithotripsy on the left side with ureteral stent. We did talk about the potential need for more than one shockwave lithotripsy given the size of stone burden. He agrees to proceed with this plan. Evaluate varicocele with scrotal ultrasound with further recommendations to follow. We have discussed various treatment options and have decided to proceed with ESWL with stent placement. We did discuss all risks and potential complications at length - patient desires to proceed.s [email or web address] Not available 09/15/2020 12:20:38 10/30/2020 [id number] varicocele repai r: before your surgery [facility] Not available 11/01/2020 07:25:30 kidney stone: ca re instructions [facility] Not available 11/01/2020 07:25:30 learning about d iet for kidney stone prevention [facility] Not available 11/01/2020 07:25:30 spermatocele: ca re instructions [facility] Not available 11/01/2020 07:25:30 We have discusse d his ED condition at length. He is very motivated to undergo therapy to restore his ability to achieve an erection. We have discussed all forms of potential therapy and he would now like to try PDE5I's which were discussed in detail to him. He was advised of and is aware of potential risks, drug interactions and neccesity to to never take NTG containing medications at any time with PDE5I's . Samples and Rx were given and we can later give additional Rx for alternative PDE5I should this be required based on personal choice, expense, or other issue. Plan for metabolic workup for stone disease We discussed scrotal discomfort and at this point we will observe benign finding seen on scrotal ultrasound. May consider spermatocele ectomy or varicocelectomy in the future. [email or web address] Not available 11/01/2020 07:25:28 07/26/2021 [id number] continue to obse rve conservatively [facility] Not available 07/29/2021 20:13:24 Reason for Referral None Reported. Results Created Date Observation Date Name Description Value Unit Range Abnormal Flag Note LastModifiedBy Organization Detail LastModifiedTime 10/31/19 21 10/30/2020 urina lysis panel , auto Unknown Analyte Clean Catch Not Available [facility] [address], [place], [address], 10/30/2020 12:10:16 10/31/19 21 10/30/2020 urina lysis panel , auto Unknown Analyte Yellow Not Available [facility] [place] [address], [place], [address], 10/30/2020 12:10:16 10/31/19 21 10/30/2020 urina lysis panel , auto Unknown Analyte Clear Not Available [facility] [address], [place], [address], 10/30/2020 12:10:16 10/31/19 21 10/30/2020 urina lysis panel , auto Unknown Analyte 1.025 Not Available [facility] [address], [place], [address], 10/30/2020 12:10:16 10/31/19 21 10/30/2020 urina lysis panel , auto Unknown Analyte 1.003- 1.035 Not Available [facility] [address], [place], [address], 10/30/2020 12:10:16 10/31/19 21 10/30/2020 urina lysis panel , auto Unknown Analyte 5.0 Not Available [facility] [address], [place], [address], 10/30/2020 12:10:16 10/31/19 21 10/30/2020 urina lysis panel , auto Unknown Analyte 5.0-8. 0 Not Available [facility] [address], [place], [address], 10/30/2020 12:10:16 10/31/19 21 10/30/2020 urina lysis panel , auto Unknown Analyte 500 Fabian/ul (++) Not Available [facility] [address], [place], [address], 10/30/2020 12:10:16 10/31/19 21 10/30/2020 urina lysis panel , auto Unknown Analyte Negati ve Not Available [facility] [address], [place], [address], 10/30/2020 12:10:16 10/31/19 21 10/30/2020 urina lysis panel , auto Unknown Analyte Negati ve Not Available [facility] [address], [place], [address], 10/30/2020 12:10:16 10/31/19 21 10/30/2020 urina lysis panel , auto Unknown Analyte Negati ve Not Available [facility] [address], [place], [address], 10/30/2020 12:10:16 10/31/19 21 10/30/2020 urina lysis panel , auto Unknown Analyte Negati ve Not Available [facility] [address], [place], [address], 10/30/2020 12:10:16 10/31/19 21 10/30/2020 urina lysis panel , auto Unknown Analyte Negati ve Not Available [facility] [address], [place], [address], 10/30/2020 12:10:16 10/31/19 21 10/30/2020 urina lysis panel , auto Unknown Analyte Normal Not Available [facility] [address], [place], [address], 10/30/2020 12:10:16 10/31/19 21 10/30/2020 urina lysis panel , auto Unknown Analyte Normal Not Available [facility] [address], [place], [address], 10/30/2020 12:10:16 10/31/19 21 10/30/2020 urina lysis panel , auto Unknown Analyte Negati ve Not Available [facility] [address], [place], [address], 10/30/2020 12:10:16 10/31/19 21 10/30/2020 urina lysis panel , auto Unknown Analyte Negati ve Not Available [facility] [address], [place], [address], 10/30/2020 12:10:16 10/31/19 21 10/30/2020 urina lysis panel , auto Unknown Analyte 1 mg/dl Not Available [facility] [address], [place], [address], 10/30/2020 12:10:16 10/31/19 21 10/30/2020 urina lysis panel , auto Unknown Analyte Normal 1 mg/dl Not Available [facility] [address], [place], [address], 10/30/2020 12:10:16 10/31/19 21 10/30/2020 urina lysis panel , auto Unknown Analyte Negati ve Not Available [facility] [address] [place] [address] Rd [address], [place], [address], 10/30/2020 12:10:16 10/31/19 21 10/30/2020 urina lysis panel , auto Unknown Analyte Negati ve Not Available [facility] [address], [place], [address], 10/30/2020 12:10:16 10/31/19 21 10/30/2020 urina lysis panel , auto Unknown Analyte Negati ve Not Available [facility] [address], [place], [address], 10/30/2020 12:10:16 10/31/19 21 10/30/2020 urina lysis panel , auto Unknown Analyte Negati ve Not Available [facility] [address], [place], [address], 10/30/2020 12:10:16 09/14/19 21 09/14/2020 urina lysis panel , auto Unknown Analyte Clean Catch Not Available [facility] [address], [place], [address], 09/14/2020 13:46:31 09/14/19 21 09/14/2020 urina lysis panel , auto Unknown Analyte Yellow Not Available [facility] [address], [place], [address], 09/14/2020 13:46:31 09/14/19 21 09/14/2020 urina lysis panel , auto Unknown Analyte Clear Not Available [facility] [address], [place], [address], 09/14/2020 13:46:31 09/14/19 21 09/14/2020 urina lysis panel , auto Unknown Analyte 1.010 Not Available [facility] [address], [place], [address], 09/14/2020 13:46:31 09/14/19 21 09/14/2020 urina lysis panel , auto Unknown Analyte 1.003- 1.035 Not Available [facility] [address], [place], [address], 09/14/2020 13:46:31 09/14/19 21 09/14/2020 urina lysis panel , auto Unknown Analyte 7.0 Not Available [facility] [address], [place], [address], 09/14/2020 13:46:31 09/14/19 21 09/14/2020 urina lysis panel , auto Unknown Analyte 5.0-8. 0 Not Available [facility] [address], [place], [address], 09/14/2020 13:46:31 09/14/19 21 09/14/2020 urina lysis panel , auto Unknown Analyte 75 Fabian/ul (+) Not Available [facility] [address], [place], [address], 09/14/2020 13:46:31 09/14/19 21 09/14/2020 urina lysis panel , auto Unknown Analyte Negati ve Not Available [facility] [address], [place], [address], 09/14/2020 13:46:31 09/14/19 21 09/14/2020 urina lysis panel , auto Unknown Analyte Negati ve Not Available [facility] [address], [place], [address], 09/14/2020 13:46:31 09/14/19 21 09/14/2020 urina lysis panel , auto Unknown Analyte Negati ve Not Available [facility] [address], [place], [address], 09/14/2020 13:46:31 09/14/19 21 09/14/2020 urina lysis panel , auto Unknown Analyte Negati ve Not Available [facility] [address], [place], [address], 09/14/2020 13:46:31 09/14/19 21 09/14/2020 urina lysis panel , auto Unknown Analyte Negati ve Not Available [facility] [address], [place], [address], 09/14/2020 13:46:31 09/14/19 21 09/14/2020 urina lysis panel , auto Unknown Analyte Normal Not Available [facility] [address], [place], [address], 09/14/2020 13:46:31 09/14/19 21 09/14/2020 urina lysis panel , auto Unknown Analyte Normal Not Available [facility] [address], [place], [address], 09/14/2020 13:46:31 09/14/19 21 09/14/2020 urina lysis panel , auto Unknown Analyte Negati ve Not Available [facility] [address], [place], [address], 09/14/2020 13:46:31 09/14/19 21 09/14/2020 urina lysis panel , auto Unknown Analyte Negati ve Not Available [facility] [address], [place], [address], 09/14/2020 13:46:31 09/14/19 21 09/14/2020 urina lysis panel , auto Unknown Analyte 4 mg/dl Not Available [facility] [address], [place], [address], 09/14/2020 13:46:31 09/14/19 21 09/14/2020 urina lysis panel , auto Unknown Analyte Normal 1 mg/dl Not Available [facility] [address], [place], [address], 09/14/2020 13:46:31 09/14/19 21 09/14/2020 urina lysis panel , auto Unknown Analyte Negati ve Not Available [facility] [address], [place], [address], 09/14/2020 13:46:31 09/14/19 21 09/14/2020 urina lysis panel , auto Unknown Analyte Negati ve Not Available [facility] [address], [place], [address], 09/14/2020 13:46:31 09/14/19 21 09/14/2020 urina lysis panel , auto Unknown Analyte Negati ve Not Available [facility] [address], [place], [address], 09/14/2020 13:46:31 09/14/19 21 09/14/2020 urina lysis panel , auto Unknown Analyte Negati ve Not Available [facility] [address], [place], [address], 09/14/2020 13:46:31 10/31/1910/30/2020 PTH (para thyro id hormo ne), intac t + calci um, serum or plasm a PTH, intact 32.0 pg/mL 15.0-6 5.0 normal INTER PRETI VE GUIDE ===== ===== ===== ===== ===== ===== ===== ===== ===== ===== ===== === PTH CALCI UM CONDI TION ===== ===== ===== ===== ===== ===== ===== ===== ===== ===== ===== = Debby l Debby l Debby l Parat hyroi d _ Low or Low Hypop lobito yroid ism Low Debby l _ Debby l or High Prima ry Hyper parat hyroi dism High __ High Debby l or Secon ilana Hyper parat hyroi dism Low __ High High Terti slime Hyper parat hyroi dism __ Low or High Non-P lobito yroid Hyper calce bhakti Low Debby l ===== ===== ===== ===== ===== ===== ===== ===== ===== ===== ===== ==== Not Available [facility] [address] [place] [address], [address], 10/30/2020 16:42:01 10/31/19 21 10/30/2020 PTH (para thyro id hormo ne), intac t + calci um, serum or plasm a calcium 10.1 mg/dL 8.6-10 .2 normal Not Available [facility] [address] [place] [address], [address], 10/30/2020 16:42:01 10/31/19 21 10/30/2020 urolo gy custo m panel sodium 141 mmol/ L 136-14 5 normal Not Available [facility] [address] [place] [address], [address], 10/30/2020 16:36:36 10/31/19 21 10/30/2020 urolo gy custo m panel potassium 4.6 mmol/ L 3.4-5. 0 normal Not Available [facility] [address] [place] [address], [address], 10/30/2020 16:36:36 10/31/19 21 10/30/2020 urolo gy custo m panel chloride 107 mmol/ L 98-107 normal Not Available [facility] [address] [place] [address], [address], 10/30/2020 16:36:36 10/31/19 21 10/30/2020 urolo gy custo m panel glucose 110 mg/dL 74-100 high Not Available [facility] [address] [place] [address], [address], 10/30/2020 16:37:01 10/31/19 21 10/30/2020 urolo gy custo m panel blood urea nitrogen 13 mg/dL 6-20 normal Not Available [facility] [address] [place] [address], [address], 10/30/2020 16:37:01 10/31/19 21 10/30/2020 urolo gy custo m panel creatinine 1.16 mg/dL 0.70-1 .25 normal Not Available [facility] [address] [place] [address], [address], 10/30/2020 16:37:01 10/31/19 21 10/30/2020 urolo gy custo m panel BUN/creatini ne ratio 11 (calc ) 10-20 normal Not Available [facility] [address] [place] [address], [address], 10/30/2020 16:37:01 10/31/19 21 10/30/2020 urolo gy custo m panel sodium 141 mmol/ L 136-14 5 normal Not Available [facility] [address] [place] [address], [address], 10/30/2020 16:37:01 10/31/19 21 10/30/2020 urolo gy custo m panel potassium 4.6 mmol/ L 3.4-5. 0 normal Not Available [facility] [address] [place] [address], [address], 10/30/2020 16:37:01 10/31/19 21 10/30/2020 urolo gy custo m panel chloride 107 mmol/ L 98-107 normal Not Available [facility] [address] [place] [address], [address], 10/30/2020 16:37:01 10/31/19 21 10/30/2020 urolo gy custo m panel carbon dioxide 22 mmol/ L 20-32 normal Not Available [facility] [address] [place] [address], [address], 10/30/2020 16:37:01 10/31/19 21 10/30/2020 urolo gy custo m panel anion gap 12 (calc ) 7-25 normal Not Available [facility] [address] [place] [address], [address], 10/30/2020 16:37:01 10/31/19 21 10/30/2020 urolo gy custo m panel calcium 9.7 mg/dL 8.6-10 .2 normal Not Available [facility] [address] [place] [address], [address], 10/30/2020 16:37:01 10/31/19 21 10/30/2020 urolo gy custo m panel phosphorus 3.6 mg/dL 2.5-4. 5 normal Not Available [facility] [address] [place], [address], 10/30/2020 16:37:01 10/31/19 21 10/30/2020 urolo gy custo m panel uric acid 7.4 mg/dL 4.0-7. 6 normal Not Available [facility] [address] [place] [address], [address], 10/30/2020 16:37:01 10/31/19 21 10/30/2020 urolo gy custo m panel GFR 76 >= 60 normal Not Available [facility] [address] [place], [address], 10/30/2020 16:37:01 10/31/19 21 10/30/2020 urolo gy custo m panel GFR non- 66 >= 60 normal NOT E NEW calcu latio n for GFR is based on the Natio nal Kidne y Found ation CKD-E PI equat ion and allow s for repor ting GFR value s great er than 60 mL/mi n/1.7 3 m2. This calcu latio n has not been valid ated for patie nts less than 18 yrs., pregn ant women and Hispa nics. Chron ic kidne y disea se is defin ed as kidne y damag e or GFR less than 60 mL/mi n/1.7 3 m2 for 3 month s or longe r. Not Available [facility] [place], [address], 10/30/2020 16:37:01 10/31/19 21 11/04/2020 kidne y stone reyes sis composition SEE BELOW normal Calci um Oxala te Dihyd rate (Wedd ellit e) 60% Calci um Oxala te Monoh ydrat e (Whew ellit e) 20% Carbo eva Apati te (Dahl lite) 20% See Note 1 Not Available [facility] [place], [address], 11/04/2020 01:16:38 10/31/19 21 11/04/2020 kidne y stone reyes sis weight 0.271 g normal Note 1 This test was devel oped and its reyes tical perfo rmanc e gregory cteri stics have been deter mined by [facility]. It has not been clear ed or appro malaika by the FDA. This assay has been valid ated pursu ant to the CLIA regul ation s and is used for clini monique purpo ses. TEST PERFO RMED AT: [facility] [address] [place] [id number] Tiffanie CROSS Not Available [facility] [address] [facility], [place], [address], 11/04/2020 01:16:38 07/26/20 21 07/26/2021 urina lysis panel , auto Unknown Analyte Clean Catch Not Available [facility] [address], [place], [address], 07/26/2021 10:53:05 07/26/20 21 07/26/2021 urina lysis panel , auto Unknown Analyte Yellow Not Available [facility] [address], [place], [address], 07/26/2021 10:53:05 07/26/20 21 07/26/2021 urina lysis panel , auto Unknown Analyte Clear Not Available [facility] [address], [place], [address], 07/26/2021 10:53:05 07/26/20 21 07/26/2021 urina lysis panel , auto Unknown Analyte 1.015 Not Available [facility] [address], [place], [address], 07/26/2021 10:53:05 07/26/20 21 07/26/2021 urina lysis panel , auto Unknown Analyte 1.003- 1.035 Not Available [facility] [address], [place], [address], 07/26/2021 10:53:05 07/26/20 21 07/26/2021 urina lysis panel , auto Unknown Analyte 6.0 Not Available [facility] [address], [place], [address], 07/26/2021 10:53:05 07/26/20 21 07/26/2021 urina lysis panel , auto Unknown Analyte 5.0-8. 0 Not Available [facility] [address], [place], [address], 07/26/2021 10:53:05 07/26/20 21 07/26/2021 urina lysis panel , auto Unknown Analyte 75 Fabian/ul (+) Not Available [facility] [address], [place], [address], 07/26/2021 10:53:05 07/26/20 21 07/26/2021 urina lysis panel , auto Unknown Analyte Negati ve Not Available [facility] [address], [place], [address], 07/26/2021 10:53:05 07/26/20 21 07/26/2021 urina lysis panel , auto Unknown Analyte Negati ve Not Available [facility] [address], [place], [address], 07/26/2021 10:53:05 07/26/20 21 07/26/2021 urina lysis panel , auto Unknown Analyte Negati ve Not Available [facility] [address], [place], [address], 07/26/2021 10:53:05 07/26/20 21 07/26/2021 urina lysis panel , auto Unknown Analyte Negati ve Not Available [facility] [address], [place], [address], 07/26/2021 10:53:05 07/26/20 21 07/26/2021 urina lysis panel , auto Unknown Analyte Negati ve Not Available [facility] [address], [place], [address], 07/26/2021 10:53:05 07/26/20 21 07/26/2021 urina lysis panel , auto Unknown Analyte Normal Not Available [facility] [address], [place], [address], 07/26/2021 10:53:05 07/26/20 21 07/26/2021 urina lysis panel , auto Unknown Analyte Normal Not Available [facility] [address], [place], [address], 07/26/2021 10:53:05 07/26/20 21 07/26/2021 urina lysis panel , auto Unknown Analyte Negati ve Not Available [facility] [address], [place], [address], 07/26/2021 10:53:05 07/26/20 21 07/26/2021 urina lysis panel , auto Unknown Analyte Negati ve Not Available [facility] [address], [place], [address], 07/26/2021 10:53:05 07/26/20 21 07/26/2021 urina lysis panel , auto Unknown Analyte 1 mg/dl Not Available [facility] [address], [place], [address], 07/26/2021 10:53:05 07/26/20 21 07/26/2021 urina lysis panel , auto Unknown Analyte Normal 1 mg/dl Not Available [facility] [address], [place], [address], 07/26/2021 10:53:05 07/26/20 21 07/26/2021 urina lysis panel , auto Unknown Analyte Negati ve Not Available [facility] [address], [place], [address], 07/26/2021 10:53:05 07/26/20 21 07/26/2021 urina lysis panel , auto Unknown Analyte Negati ve Not Available [facility] [address], [place], [address], 07/26/2021 10:53:05 07/26/20 21 07/26/2021 urina lysis panel , auto Unknown Analyte Negati ve Not Available [facility] [address], [place], [address], 07/26/2021 10:53:05 07/26/20 21 07/26/2021 urina lysis panel , auto Unknown Analyte Negati ve Not Available [facility] [address], [place], [address], 07/26/2021 10:53:05 09/15/19 21 09/15/2020 US, scrot um No observ ation record ed. [facility] [address], [place], [address], 11/01/2020 07:22:33 10/31/19 21 10/30/2020 XR, abdom en, 1 view No observ ation record ed. [facility] ([facility]) [address], [place], [address], 10/30/2020 18:52:31 02/15/20 22 02/14/2022 XR, abdom en, 1 view No observ ation record ed. [facility] ([facility]) [address], [place], [address], 02/16/2022 08:42:19 Result Notes None recorded. Problems Name Problem SNOMED Code Status Onset Date Resolution Date Notes Provider Name and Address Organization Details Recorded Time Pain in scrotum Active 2020 JENNIFER CARRANZA JR, MD [facility] [place], [address], [facility] 12:19:52 Varicocele 69885638 Active 2020 JENNIFER CARRANZA JR, MD [facility] [place], [address], [facility] 12:19:58 Spermatocele 18965228 Active 2020 JENNIFER CARRANZA JR, MD [facility] [place], [address], [facility] 07:24:01 Primary erectile dysfunction 387466573 Active 2020 JENNIFER CARRANZA JR, MD [facility] [place], [address], [facility] 07:24:03 Problem Notes None recorded. Procedures Surgical History Date Name Laterality Status Provider Name and Address Organization Details Recorded Time EXTRA CORPOREAL SHOCK WAVE LITHOTRIPSY (SURG) completed Isauro Hernandez [facility] 09/18/2020 10:03:05 Imaging Results None recorded. Procedure Notes None recorded. Medical Equipment None Reported. Allergies Allergen ID Allergen Name Allergen Category Reaction Reaction Severity Criticality Documentation Date Start Date Code Code System Note Provider Name and Address Organization Details Recorded Time 619947 tolmetin sodium medicatio n anaphylax is severe Not available 07/11/20162005 01086 RxNorm React ion: ANAPH YLAXI S;Sev erity : Florencia e; Eileen nt: Crefredy ed By: Tran witt Date: 07/16 12:38 :31 PM; Not Available [facility] 10:54:38 Medications Name Sig Start Date Stop Date Status Note LastModified by Organization Details LastModified Time Colace 100 mg capsule Take 1 capsule every day by oral route. 2020 active Not Available Not Available Not Avai lable lisinopri l 20 mg tablet Daily 09/14 completed Frequenc y: daily;Al t Frequenc y: as direct.; Medicati on Descript ion: lisinopr il; Dosage:1 /2; Route:or al; refills: 6; Quantity :30 tablet Not Available Not Available Not Available Pyridium 200 mg tablet Take 1 tablet 3 times a day by oral route as needed. 02/14 completed Not Available Not Available Not Available sildenafi l 100 mg tablet Take 1 tablet as needed by oral route as directed . 2020 active Not Available Not Available Not Avai lable bisoprolo l fumarate 5 mg tablet Bedtime active Frequenc y: hs;Medic ation Descript ion: bisoprol ol; Dosage:1 ; Route:or al; refills: 0 Not Available Not Available Not Available hydrocodo ne 7.5 mg-acetam inophen 325 mg tablet Take 1 tablet every 6 hours by oral route as needed. 02/14 completed Not Available Not Available Not Available nitroglyc uzma 0.4 mg sublingua l tablet As needed 09/14 completed Frequenc y: prn;Medi cation Descript ion: nitrogly cerin; Dosage:1 ; Route:gaitan blingual ; refills: PRN 1 yr; Quantity :25 tablet Not Available Not Available Not Available aspirin 81 mg tablet Daily 2005 active Frequenc y: daily;Me dication Descript ion: aspirin; Dosage:1 ; Route:or al; refills: 4; Quantity :30 tablet Not Available Not Available Not Available Valium 10 mg tablet Daily 09/14 completed Instruct ions: he takes 1/2 of a tablet every day.;Merritt quency: daily;Al t Frequenc y: prn;Medi cation Descript ion: diazepam ; Dosage:1 -2; Route:or al; refills: 0; Quantity :30 tablet Not Available Not Available Not Available Bactrim DS 800 mg-160 mg tablet Take 1 tablet every 12 hours by oral route. 02/14 completed Not Available Not Available Not Available Spiriva with [employer] r 18 mcg and inhalatio n capsules As Directed 09/14 completed Frequenc y: as direct.; Alt Frequenc y: as direct.; Medicati on Descript ion: tiotropi um; Route:in halation ; refills: 0; Quantity :1 capsule Not Available Not Available Not Available Tricor 145 mg tablet Daily 09/14 completed Duration : 10 days;Merritt quency: daily;Me dication Descript ion: fenofibr ate; Dosage:1 /2; Route:or al; refills: 5; Quantity :30 tablet Not Available Not Available Not Available Zantac Maximum Strength 150 mg tablet Two times a day 09/14 completed Frequenc y: bid;Medi cation Descript ion: ranitidi ne; Dosage:1 ; Route:or al; refills: 5; Quantity :60 tablet Not Available Not Available Not Available diazepam active Not Available Not Avai lable Not Available rosuvasta tin active Not Available Not Available Not Available potassium citrate ER 15 mEq (1,620 mg) tablet,ex tended release TAKE ONE TABLET BY MOUTH TWICE DAILY active Not Available Not Available No t Available Vitals Date Recorded Body height Body mass index (BMI) Body weight Provider Name and Address Organization Details Last Updated DateTime 02/14/2022 175.26 cm 32.5 kg/m2 90532.32 g [facility] 02/14/2022 16:53:36 Date Recorded Body weight Body mass index (BMI) Body height Provider Name and Address Organization Details Last Updated DateTime 07/26/2021 16087.7 g 25.1 kg/m2 175.26 cm [facility] 07/26/2021 10:52:40 Social History Question Answer Notes LastModified by Magn[employer]at ion Details LastModified Time Tobacco Smoking Status Former Smoker Jagruti Ajay [facility] 09/14/2020 13:44:24 How Much Tobacco Do You Chew? None Information not available 09/14/2020 Marital Status Informatio n not available 09/14/2020 Has Tobacco Cessation Counseling Been Provided? No [email or web address] Information not available 07/26/2021 Have You Recently Traveled Abroad? No [email or web address] Information not available 07/26/2021 Sex: Unknown Functional Status Question Answer Note LastModified by Organizat ion Details LastModified Time Do you use any illicit or recreational drugs? No [email or web address] Information not available 07/26/2021 Do you or have you ever used any other forms of tobacco or nicotine? No [email or web address] Information not available 07/26/2021 What is your level of alcohol consumption? Occasional Information not available 09/14/2020 What is your occupation? retired Information not available 09/14/2020 Mental Status None recorded. Family History Relationship Description Onset Age of this Age Resolved Age Notes LastModified by Organization Details LastModified Time Father Malignant neoplasm of prostate [email or web address] Not available 2020 13:44:11 Medical History Condition Response Arthritis Y False Teeth Y Chronic Obstructive Pulmonary Disease Y Kidney Stones Y High Cholesterol Y Emphysema Y Anesthesia Complications Y Heart Attack ([place]) Y Heart Disease Y Past Encounters Encounter ID Performer Location Encounter Start Date Encounter Closed Date Diagnosis/Indication Diagnosis SNOMED-CT Code Diagnosis ICD10 Code Diagnosis Note [id number] JENNIFER CARRANZA JR, MD [facility] [address] [place] [address] 09/14/2020 12:53:09 09/14/2020 14:11:23 Pain in scrotum N50.82 Kidney stone 59410420 N2 0.0 Varicocele 37038028 I86. 1 [id number] JENNIFER CARRANZA JR, MD [facility] [address] [address] 10/30/2020 11:42:16 10/30/2020 12:39:21 Kidney stone 76231349 N20.0 Varicocele 01523436 I86. 1 Spermatocele 58494425 N4 3.40 Primary er ectile dysfunction 279434402 N52.9 [id number] JENNIFER CARRANZA JR, MD [facility] [address] [place] [address] 0 07/26/2021 10:15:40 07/26/2021 10:45:54 Kidney stone 75597730 N20.0 Pain in scrotum N50.82 Spermatocele 17225159 N4 3.40 Varicocele 73525026 I86. 1 [id number] JENNIFER CARRANZA JR, MD [facility] [address] [address] 02/14/2022 16:01:09 02/14/2022 17:00:05 Spermatocele 33385037 N43.40 Varicocele 55229353 I86. 1 Kidney stone 92461082 N2 0.0 Health Concerns Section Related Observation LastModified by Organization Detai ls LastModified Time None Recorded Concern Status LastModified by Organization Details LastModified Time None Recorded Advance Directives Directive None Recorded Payers Insurance Date Sequence Insurance Name Policy Number Policy Galicia Covered Member ID Galicia Member ID Guarantor Name 04/15/2021 PAYMENT PLAN Antonio Ramirez 05/21/2024 1 [place] [id number] Antonio Jeffery James [id number] Antonio Latia James 05/21/2024 2 [place] Antonio Jeffery James [id number] Antonio Jeffery James 05/21/2024 1 [employer] (MEDICARE REPLACEMENT/A DVANTAGE - PPO) Antonio Jeffery James [id number] Antonio Latia James Notes Date Note Type Note Provider Name and Address Organization Details Recorded Time 09/14/2020 text/html Patient is in to day for evaluation of nephrolithiasis. He is a pleasant 65-year-old gentleman who has been having intermittent left flank pain. He does have a history of stones past having undergone shockwave lithotripsy and PCNL in the distant past. He states he occasionally passes small stones. A CT scan of the abdomen and pelvis without contrast was formed June 28, 2020. This showed us cluster of stones in the mid pole region of the left kidney total of approximately 2 cm. Patient denies gross hematuria. Patient also reports bilateral tenderness in the testis especially on the left side. There is no swelling. There is no mass. He denies previous scrotal surgery. JENNIFER CARRANZA JR, MD [address] [place] [address], [address], [facility] 09/15/2020 12:20:53 10/30/2020 text/html Patient is in to day for evaluation of nephrolithiasis. Patient underwent shockwave lithotripsy on the left September 18, 2020. He is recovered uneventfully. KUB today shows resolution of stone disease. He is interested in metabolic evaluation. Patient does have a history in the past the PCNL and ESWL. Patient also reports bilateral tenderness in the testis especially on the left side. There is no swelling. There is no mass. He denies previous scrotal surgery. Scrotal ultrasound September 15, 2020 shows right-sided epididymal cysts and left-sided varicocele. Patient reports problems with erectile function. His erections are not as rigid as they have been in the past and he desires medical therapy. JENNIFER CARRANZA JR, MD [address] [place] [address], [address], [facility] 11/01/2020 07:25:48 07/26/2021 text/html Patient is in to day for evaluation of nephrolithiasis. Patient underwent shockwave lithotripsy on the left September 18, 2020. He is recovered uneventfully. KUB today shows resolution of stone disease. patient does use citrate therapy. Patient does have a history in the past the PCNL and ESWL. Patient also reports bilateral tenderness in the testis especially on the left side. There is no swelling. There is no mass. He denies previous scrotal surgery. Scrotal ultrasound September 15, 2020 shows right-sided epididymal cysts and left-sided varicocele. Patient reports problems with erectile function. His erections are not as rigid as they have been in the past and he desires medical therapy. JENNIFER CARRANZA JR, MD [facility], [address], [facility] 07/29/2021 20:14:26 02/14/2022 text/html Patient is in to day for evaluation of nephrolithiasis. Patient underwent shockwave lithotripsy on the left September 18, 2020. He is recovered uneventfully. KUB today shows resolution of stone disease. patient does use citrate therapy. Patient does have a history in the past the PCNL and ESWL. Patient also reports bilateral tenderness in the testis especially on the left side. There is no swelling. There is no mass. He denies previous scrotal surgery. Scrotal ultrasound September 15, 2020 shows right-sided epididymal cysts and left-sided varicocele. Patient reports problems with erectile function. His erections are not as rigid as they have been in the past and he desires medical therapy. JENNIFER CARRANZA JR, MD [facility] [place], [address], [facility] 02/18/2022 14:57:51
--- OUTSIDE RECORDS SUMMARY | 2025-02-21 09:58 | XMS_ITS | Encounter Summary ---
Author Organization [employer] ([place], [place], [place], [place]) Address [address] [place] [address] Care Team Providers Care Deblocker Name Role Phone Roc Bonilla MD Primary Care Provider [phone] Marisa Coy APRN Unavailable [phone] Encounter Details Date Type Department Care Team (Late st Contact Info) Description 09/18/2020 Transcribed Document [facility] [place] [address] ProviderAlexander MD [address] [place], [place] [address] Social History Tobacco Use Types Packs/Day Years Used Date Smoking Tobacco: Never Assessed Sex and Gender Information Value Date Recorded Sex Assigned at Not on file Legal Sex Male 4:36 PM CDT Gender Identity Not on file Sexual Orientation Not on file documented as of this encounter Miscellaneous Notes * Cerner Conversion Note - Alexander ProviderMD - 09/18/2020 8:37 AM RISK ASSESSOR Patient: TAH RAMIREZ Age: 65 Years Sex: Male : 1955 *Operation cystoscopy, left ureteral stent placement , 4.8x26 with string Left ESWL Indication for Surgery 65 yo male with left nephrolithiasis. he desires surgical therapy and give consent for ESWL *Preoperative Diagnosis left nephrolithiasis *Postoperative Diagnosis left nephrolithiasis *Surgeon(s) [facility] *Procedure Narrative Consent obtained. GETA induced. Dorsal lithotomy, pressure points padded. Scope inserted. Wire advanced left renal pelvis with fluor for guidance. 4.8x26 stent with string inserted. Repositioned into supine position. 2400 shocks delivered to radio-opaque stone under guidance of fluoro. Good fragmentation. GETA reversed. To RR in stable condition. *Estimated Blood Loss Minimal *Findings Left nephrolithiasis *Specimen(s) None Date of Service Date/Time of Service SN - Proc - Start Time: 09/18/20 07:45:00 (09/18/20 08:11:03) Electronically signed by [facility] Conversion Finisher Machine Cerner at 12/02/2022 8:47 AM CDT documented in this encounter Plan of Treatment Upcoming Encounters Date Type Department Care Team (Late st Contact Info) Description 03/10/2025 9:45 AM EDT Office Visit [facility] Electrophysiology [address] [place] [address] Jorge Luis Ervin MD [address] [facility] [address] [place] [id number] documented as of this encounter Visit Diagnoses Not on filedocumented in this encounter Care Teams Deblocker Relationship Specialty Start Date End Date Roc Bonilla MD [address] [place] [address] PCP - General General Internal Medicine 08/07/22 Marisa Coy, CORPORATE TAX PREPARER [address] [facility] [address] [place], [place] [address] Cardiology 10/09/23 documented as of this encounter
--- OUTSIDE RECORDS SUMMARY | 2025-02-21 09:58 | XMS_ITS | Encounter Summary ---
Author Organization [employer] ([place], [place], [place], [place]) Address [address] [place] [address] Care Team Providers Care Gum Scoring Machine Operator Name Role Phone Roc Bonilla MD Primary Care Provider [phone] Marisa Coy APRN Unavailable [phone] Encounter Details Date Type Department Care Team (Late st Contact Info) Description 09/18/2020 Transcribed Document [facility] Family Medicine [address] [place] [address] ProviderAlexander MD [address] [place], [place] [address] Social History Tobacco Use Types Packs/Day Years Used Date Smoking Tobacco: Never Assessed Sex and Gender Information Value Date Recorded Sex Assigned at Not on file Legal Sex Male 4:36 PM CDT Gender Identity Not on file Sexual Orientation Not on file documented as of this encounter Miscellaneous Notes * Cerner Conversion Note - Alexander ProviderMD - 09/18/2020 7:45 AM BILL POSTER INSTALLER [facility] Main OR Preop Summary Primary Physician: JENNIFER CARRANZA JR, MD-URO Finalized Date/Time: 09/18/20 14:41:03 Pt. Name: THA RAMIREZ D.O.B./Sex: 1955 Male Med Rec #: [id number] Physician: JENNIFER CARRANZA JR, MD-URO Financial #: [id number] Pt. Type: O Room/Bed: /2 Admit/Disch: 09/18/20 05:36:00 - Institution: [facility] PreOp Case Times Entry 1 In Preop 09/18/20 06:58:00 Ready for Holding n/a Room Patient Ready for 09/18/20 07:28:00 Surgery Patient Out of Preop 09/18/20 07:30:00 Patient Out of n/a Holding Room Last Modified By: ONOFRE POLANCO RN 09/18/20 07:32:58 Finalized By: Claudia Choe, RN Document Signatures Signed By: Claudia Choe, RN 09/18/20 14:41 Electronically signed by [facility] Conversion Converting Technician Cerner at 12/02/2022 8:35 AM CDT documented in this encounter Plan of Treatment Upcoming Encounters Date Type Department Care Team (Late st Contact Info) Description 03/10/2025 9:45 AM EDT Office Visit [facility] Electrophysiology [address] [place] [id number] Jorge Luis Ervin MD [address] [facility] [address] [place] [address] documented as of this encounter Visit Diagnoses Not on filedocumented in this encounter Care Teams Gum Scoring Machine Operator Relationship Specialty Start Date End Date Roc Bonilla MD [address] [place] [address] PCP - General General Internal Medicine 08/07/22 Marisa Coy, GEOPHYSICAL OBSERVER [address] [facility] [address] [place] [id number] Cardiology 10/09/23 documented as of this encounter
--- OUTSIDE RECORDS SUMMARY | 2025-02-21 09:58 | XMS_ITS | Encounter Summary ---
Author Organization [employer] ([place], [place], [place], [place]) Address [address] [place] [address] Care Team Providers Care Sole Dyer Name Role Phone Roc Bonilla MD Primary Care Provider [phone] Marisa Coy APRN Unavailable [phone] Encounter Details Date Type Department Care Team (Late st Contact Info) Description 09/18/2020 Transcribed Document [facility] [place] [facility] [place] [address] ProviderAlexander MD [address] [place], [place] [address] Social History Tobacco Use Types Packs/Day Years Used Date Smoking Tobacco: Never Assessed Sex and Gender Information Value Date Recorded Sex Assigned at Not on file Legal Sex Male 4:36 PM CDT Gender Identity Not on file Sexual Orientation Not on file documented as of this encounter Miscellaneous Notes * Cerner Conversion Note - Alexander ProviderMD - 09/18/2020 6:15 AM ECONOMICS TEACHER Patient: THA RAMIREZ Age: 65 years Sex: Male : 1955 Associated Diagnoses: None Author: CASSANDRA MTZ APRN Chief Complaint L renal stone Review of Systems ROS reviewed as documented in chart no change since last seen by surgeon Health Status Allergies: Allergic Reactions (Selected) Severity Not Documented Penicillin- Rash. Synthetic muscle relaxers- No reactions were documented. Tolectin- Hypotension. Nonallergic Reactions (Selected) Severity Not Documented Morphine- Vomiting.., Allergies (4) Active Reaction morphine Vomiting. penicillin rash synthetic muscle relaxers None Documented Tolectin Hypotension Current medications: (Selected) Inpatient Medications Ordered Cleocin HCl: 900 mg, 50 mL, 100 mL/Hr, IV Piggyback, PREOP Lactated Ringers Injection intravenous solution 1,000 mL: 50 mL/Hr, IntraVENous bisoprolol: 5 mg, Oral, 1-Time lidocaine 1% preservative-free injectable solution: 0.5 mL, IntraDermal, 1-Time Documented Medications Documented Aspir 81: Oral, Daily, 0 Refill(s) Promethazine VC with Codeine: 5 mL, Oral, Q6H, PRN: as needed for cough Tylenol: See Instructions, OTC unsure of dose 1 or 2 tabs oral prn pain Valium: 5 mg, Oral, PRN: Anxiety atorvastatin: 40 mg, Oral, At Bedtime bisoprolol: 5 mg, Oral, Daily lisinopril: 10 mg, Oral, Daily mexiletine 200 mg oral capsule: 1 Cap, Oral, Q8H, 0 Refill(s) rosuvastatin 20 mg oral tablet: 1 Tab, Oral, Daily, 0 Refill(s), Home Medications (9) Active Aspir 81 , Oral, Daily atorvastatin 40 mg, Oral, At Bedtime bisoprolol 5 mg, Oral, Daily lisinopril 10 mg, Oral, Daily mexiletine 200 mg oral capsule 200 mg = 1 Cap, Oral, Q8H Promethazine VC with Codeine 5 mL, PRN, Oral, Q6H rosuvastatin 20 mg oral tablet 20 mg = 1 Tab, Oral, Daily Tylenol See Instructions Valium 5 mg, PRN, Oral , Medications (4) Active Scheduled: (3) bisoprolol 5 mg tab 5 mg 1 Tab, Oral, 1-Time clindamycin/D5w 900 mg 50 mL, IV Piggyback, PREOP lidocaine 1% *PF* inj 2 mL 0.5 mL, IntraDermal, 1-Time Continuous: (1) lactated ringers 1,000 mL 1,000 mL, IntraVENous, 50 mL/Hr PRN: (0) Problem list: All Problems 10 heart stent last one in 2011 / SNOMED CT 3607197382 / Confirmed Sleep apnea / SNOMED CT 345941099 / Confirmed no cpap emphesema / SNOMED CT 420996275 / Confirmed Peripheral neuropathy / SNOMED CT 4975790335 / Confirmed Myocardial infarction / SNOMED CT 50002466 / Confirmed kidney stones / SNOMED CT 201889307 / Confirmed high blood pressure / SNOMED CT 2719266358 / Confirmed Hyperlipidemia / SNOMED CT 60623915 / Confirmed History of obstructive sleep apnea / IMO 35730370 / Confirmed Hard of hearing / SNOMED CT 917694106 / Confirmed History of shingles 2007 / SNOMED CT 787959097 / Confirmed Coronary artery disease / SNOMED CT 7913000398 / Confirmed copd / SNOMED CT 54107298 / Confirmed Back pain / SNOMED CT 7646537877 / Confirmed Arthritis / SNOMED CT 7075283 / Confirmed anxiety / SNOMED CT 65437976 / Confirmed, Active Problems (16) 10 heart stent last one in 2011 anxiety Arthritis Back pain copd Coronary artery disease emphesema Hard of hearing high blood pressure History of obstructive sleep apnea History of shingles 2006 Hyperlipidemia kidney stones Myocardial infarction Peripheral neuropathy Sleep apnea Histories Past Medical History: No active or resolved past medical history items have been selected or recorded. Family History: No family history items have been selected or recorded. Procedure history: heart stents times 10. kidney stones. lung sx. Comments: 06/24/2014 16:48 EST - JENNIFER SANCHEZ RN decortication/ pleurodesis Colonoscopy ([id number]). Social History Social & Psychosocial Habits Alcohol 09/15/2020 Alcohol Use History, Social Habits Yes Alcohol Use in Last Twelve Months Yes Alcohol Use Frequency Socially Substance Abuse 09/15/2020 Recreational Drug Use History Yes Recreational Drug Type Marijuana/Hashish Tobacco 06/24/2014 Tobacco Use Within Last Twelve Months Cigarettes Smoking Status Former smoker Years of Tobacco Use 35 Packs/Tins Daily 3 Month Tobacco Last Used Quit approx 200509/15/2020 Smoking Status Former smoker, quit more Smokeless Tobacco Status Former smokeless tobacco . Physical Examination VS/Measurements Vital Signs/Vital Measures 09/18/2020 6:00 EST Blood Pressure Location Arm, left upper Blood Pressure Source Non-Invasive BP Device Blood Pressure Position Supine Systolic Blood Pressure 123 mmHg Diastolic Blood Pressure 72 mmHg Temperature Source Temporal artery scanning Temperature Mode Fahrenheit Temperature, Fahrenheit 97.3 Deg F Heart Rate Monitored 58 bpm LOW Respiratory Rate 20 Breaths/Min Oxygen Saturation 95 % Oxygen Therapy Mode Room air , Vitals Signs (last 24 hrs) Last Charted Minimum Maximum Temp 97.3 (SEP 18 06:00) 97.3 (SEP 18:00) 97.3 (SEP 18 06:00) Mon HR 58 (SEP 18 06:00) 58 (SEP 18 06:00) 58 (SEP 18 06:00) Resp Rate 20 (SEP 18:00) 20 (SEP 18:00) 20 (SEP 18:00) SBP 123 (SEP 18:00) 123 (SEP 18:00) 123 (SEP 18:00) DBP 72 (SEP 18:) 72 (SEP 18:00) 72 (SEP 18:00) SpO2 95 (SEP 18:00) 95 (SEP 18:00) 95 (SEP 18:00) General: Alert and oriented, No acute distress. Eye: Pupils are equal, round and reactive to light, Extraocular movements are intact, glasses. HENT: Normocephalic, Normal hearing. Neck: Supple, Non-tender. Respiratory: Lungs are clear to auscultation, Respirations are non-labored. Cardiovascular: Normal rate, Regular rhythm, No murmur, No gallop, No edema. Gastrointestinal: Soft, Non-tender. Genitourinary: Kidney: Left, Costovertebral angle tenderness. Lymphatics: No lymphadenopathy neck, axilla, groin. Musculoskeletal: Normal range of motion, Normal strength. Integumentary: Warm, Dry, [place]. Neurologic: Alert, Oriented. Psychiatric: Cooperative, Appropriate mood & affect. Review / Management Results review: No qualifying data available. Impression and Plan Condition: Stable. documented in this encounter Plan of Treatment Upcoming Encounters Date Type Department Care Team (Late st Contact Info) Description 03/10/2025 9:45 AM EDT Office Visit [facility] Electrophysiology [address] [phone] Jorge Luis Ervin MD [address] [facility] [address] [place] [address] documented as of this encounter Visit Diagnoses Not on filedocumented in this encounter Care Teams Sole Dyer Relationship Specialty Start Date End Date Roc Bonilla MD [address] [place] [address] PCP - General General Internal Medicine 08/07/22 Marisa Coy, SOLDER SPRAYER [address] [facility] [address] [place] [address] Cardiology 10/09/23 documented as of this encounter
--- OUTSIDE RECORDS SUMMARY | 2025-02-21 09:58 | XMS_ITS | Encounter Summary ---
Author Organization [employer] ([place], [place], [place], [place]) Address [address] [place] [address] Care Team Providers Care Ophthalmic Assistant Name Role Phone Roc Bonilla MD Primary Care Provider [phone] Marisa Coy APRN Unavailable [phone] Encounter Details Date Type Department Care Team (Late st Contact Info) Description 09/18/2020 Transcribed Document [facility] [place] Medicine [address] [place] [address] ProviderAlexander MD [address] [place], [place] [address] Social History Tobacco Use Types Packs/Day Years Used Date Smoking Tobacco: Never Assessed Sex and Gender Information Value Date Recorded Sex Assigned at Not on file Legal Sex Male 4:36 PM CDT Gender Identity Not on file Sexual Orientation Not on file documented as of this encounter Miscellaneous Notes * Cerner Conversion Note - Alexander ProviderMD - 09/18/2020 7:45 AM DIAGNOSTIC RADIOLOGIST [facility] Main OR PACU Summary Primary Physician: JENNIFER CARRANZA JR, MD-URO Finalized Date/Time: 09/18/20 09:58:21 Pt. Name: THA RAMIREZ D.O.B./Sex: 1955 Male Med Rec #: [id number] Physician: JENNIFER CARRANZA JR, MD-URO Financial #: [id number] Pt. Type: O Room/Bed: /2 Admit/Disch: 09/18/20 05:36:00 - Institution: [facility] Main OR PACU I Case Times Entry 1 In PACU I 09/18/20 08:50:00 Ready for PACU 09/18/20 09:35:00 Discharge Discharge from PACU 09/18/20 09:35:00 I Last Modified By: Catherine Espinosa RN 09/18/20 09:58:10 Finalized By: Catherine Espinosa, RN Document Signatures Signed By: Catherine Espinosa RN 09/18/20 09:58 Electronically signed by [facility] Conversion Financial Counselor Cerner at 12/02/2022 8:22 AM CDT documented in this encounter Plan of Treatment Upcoming Encounters Date Type Department Care Team (Late st Contact Info) Description 03/10/2025 9:45 AM EDT Office Visit [facility] Electrophysiology [address] [place] [phone] Jorge Luis Ervin MD [address] [facility] [address] [place] [address] documented as of this encounter Visit Diagnoses Not on filedocumented in this encounter Care Teams Ophthalmic Assistant Relationship Specialty Start Date End Date Roc Bonilla MD [address] [place] [address] PCP - General General Internal Medicine 08/07/22 Marisa Coy, NEWS REPORTER [address] [facility] [address] [place], [place] [id number] Cardiology 10/09/23 documented as of this encounter
--- OUTSIDE RECORDS SUMMARY | 2025-02-21 09:58 | XMS_ITS | Clinical Summary ---
Author Organization Healthcare Address [address] [place] [address] Care Team Providers Care Care Giver Name Role Phone Roc Bonilla MD Primary Care Provider [phone] Allergies No known active allergies Social History Tobacco Use Types Packs/Day Years Used Date Smoking Tobacco: Never Assessed Sex and Gender Information Value Date Recorded Sex Assigned at Not on file Legal Sex Male 8:46 PM EDT Gender Identity Not on file Sexual Orientation Not on file Last Filed Vital Signs Vital Sign Reading Time Taken Comments Blood Pressure - - Pulse - - Temperature - - Respiratory Rate - - Oxygen Saturation - - Inhaled Oxygen Concentration - - Weight 99.8 kg (220 lb) 08/15/2023 11:15 AM EST Height 185.4 cm (6' 1 ) 08/15/2023 11:15 AM EST Body Mass Index 29.03 08/15/2023 11:15 AM EST Plan of Treatment Health Maintenance Due Date Last Done Comments [facility]-Depression Screening 1955 [facility]-Hepatitis C Screening 1955 [facility]-Medicare Annual Wellness (AWV) 1955 [facility]-Infant/Child/Adol SDOH Screenings 1955 [facility]-Obesity Intervention 1962 [facility]- SDOH Screenings 1974 [facility]-Adult SDOH Screenings 1974 CT Colonography 2001 Colonoscopy 2001 FIT-DNA 2001 FIT 2001 FOBT 2001 Sigmoidoscopy 2001 [facility]-Colorectal Cancer Screening 2001 [facility]-DTaP,Tdap,and Td Vaccine s (1 - Tdap) 03/25/2002 03/24/2002, 10/19/1996 [facility]-Pneumococcal Vaccine: 50 + Years (1 of 1 - PCV) 2006 [facility]-Zoster Vaccines (1 of 2) 2006 [facility]-SVEVF-19 Vaccine (3 - season) 2024 05/04/2021, 04/12/2021 [facility]-Influenza Vaccine (#1) 2025 [facility]-RSV Vaccine: 60+ Years o r (1 - 1-dose 75+ series) 2031 HPV Vaccines Aged Out No longer eligi ble based on patient's age to complete this topic [facility]-HIB Vaccines Aged Out No longer e ligible based on patient's age to complete this topic [facility]-Hepatitis A Vaccines Aged Out No longer eligible based on patient's age to complete this topic [facility]-IPV Vaccines Aged Out No longer e ligible based on patient's age to complete this topic [facility]-Rotavirus Vaccines Aged Out No lo nger eligible based on patient's age to complete this topic Insurance [employer] Care Teams Care Giver Relationship Specialty Start Date End Date Roc Bonilla MD [address] [facility] [address] [place] [address] PCP - General 08/15/23
--- OUTSIDE RECORDS SUMMARY | 2025-02-21 09:58 | XMS_ITS | Encounter Summary ---
Author Organization [employer] ([place], [place], [place], [place]) Address [address] [place] [address] Care Team Providers Care Gusset Folder Name Role Phone Roc Bonilla MD Primary Care Provider [phone] Marisa Coy APRN Unavailable [phone] Encounter Details Date Type Department Care Team (Late st Contact Info) Description 09/18/2020 Transcribed Document [facility] [facility] [address] [place] [address] ProviderAlexander MD [address] [place], [place] [id number] Social History Tobacco Use Types Packs/Day Years Used Date Smoking Tobacco: Never Assessed Sex and Gender Information Value Date Recorded Sex Assigned at Not on file Legal Sex Male 4:36 PM CDT Gender Identity Not on file Sexual Orientation Not on file documented as of this encounter Miscellaneous Notes * Cerner Conversion Note - Alexander ProviderMD - 09/18/2020 7:45 AM [facility] Main OR IntraOp Summary Primary Physician: JENNIFER CARRANZA JR, MD-URO Finalized Date/Time: 09/19/20 07:54:29 Pt. Name: THA THOMAS D.O.B./Sex: 1955 Male Med Rec #: [id number] Physician: JENNIFER CARRANZA JR, MD-URO Financial #: [id number] Pt. Type: O Room/Bed: /2 Admit/Disch: 09/18/20 05:36:00 - 09/18/20 11:15:00 Institution: [facility] IntraOp Case Attendance Entry 1 Entry 2 Entry 3 Case Attendee DILLON GIVENS, JENNIFER, MODESTA-WAN SIMPSON, SYDNEE THOMAS NA MD-URO MD-ANS Role Performed Surgeon/Proceduralist, Anesthesiologist of EDGE BANDER HAND/Nurse Cash Register Balancer First Record Time In 09/18/20 07:31:00 09/18/20 07:31:00 09/18/20 07:31:00 Time Out 09/18/20 08:49:00 09/18/20 08:49:00 09/18/20 08:49:00 Procedure ESWL/Stent/Cysto(Left) ESWL/Stent/Cysto(Left) ESWL/Stent/Cysto(Left) Other Attendee Superficial Wound Closed By: Last Modified By: Sarita Gutiérrez, Sarita Ballesteros, Sarita Ballesteros, KINGS 09/18/20 08:54:48 09/18/20 08:54:48 09/18/20 08:54:48 Entry 4 Entry 5 Entry 6 Case Attendee TASHI TANG Karen, RN Estrellita Thurman Role Performed Scrub, First Supervisor Of Operations, First Cafe Cook Time In 09/18/20 07:40:00 09/18/20 07:31:00 09/18/20 07:32:00 Time Out 09/18/20 07:56:00 09/18/20 08:49:00 09/18/20 08:49:00 Procedure ESWL/Stent/Cysto(Left) ESWL/Stent/Cysto(Left) ESWL/Stent/Cysto(Left) Other Attendee Superficial Wound Closed By: Last Modified By: Sarita Gutiérrez, Sarita Ballesteros, Sarita Ballesteros, KINGS 09/18/20 08:54:48 09/18/20 08:54:48 09/18/20 08:54:[address] [facility] IntraOp Case Attendance Audit 09/18/20 08:54:48 Salvage Determiner: RAJAN Modifier: RAJAN 1 <+> Time Out 1 <*> Procedure ESWL/Stent/Cysto(Left) 2 <+> Time Out 2 <*> Procedure ESWL/Stent/Cysto(Left) 3 <+> Time Out 3 <*> Procedure ESWL/Stent/Cysto(Left) 4 <*> Procedure ESWL/Stent/Cysto(Left) 5 <+> Time Out 5 <*> Procedure ESWL/Stent/Cysto(Left) 6 <+> Time Out 6 <*> Procedure ESWL/Stent/Cysto(Left) 09/18/20 08:11:04 Salvage Determiner: RAJAN Modifier: RAJAN <+> 1 Procedure 2 <*> Procedure ESWL/Stent/Cysto(Left) 3 <*> Procedure ESWL/Stent/Cysto(Left) 4 <*> Procedure ESWL/Stent/Cysto(Left) 5 <*> Procedure ESWL/Stent/Cysto(Left) 6 <*> Procedure ESWL/Stent/Cysto(Left) 09/18/20 08:00:14 Salvage Determiner: RAJAN Modifier: RAJAN <+> 2 Case Attendee <+> 2 Role Performed <+> 2 Time In <+> 2 Procedure <+> 3 Case Attendee <+> 3 Role Performed <+> 3 Time In <+> 3 Procedure <+> 4 Case Attendee <+> 4 Role Performed <+> 4 Time In <+> 4 Time Out <+> 4 Procedure <+> 5 Case Attendee <+> 5 Role Performed <+> 5 Time In <+> 5 Procedure <+> 6 Case Attendee <+> 6 Role Performed <+> 6 Time In <+> [address] [facility] IntraOp Case Times Entry 1 Patient In Room Time 09/18/20 07:31:00 Out Room Time 09/18/20 08:49:00 Anesthesia Start Time 09/18/20 07:31:00 Stop Time 09/18/20 08:49:00 Anesthesia Ready 09/18/20 07:31:00 Surgery / Procedure Times Start Time 09/18/20 07:45:00 Stop Time 09/18/20 08:44:00 Last Modified By: Sarita Gutiérrez, KINGS 09/18/20 08:53:[address] [facility] IntraOp Case Times Audit 09/18/20 08:53:59 Salvage Determiner: RAJAN Modifier: RAJAN <+> 1 Out Room Time <+> 1 Stop Time <+> 1 Stop Time 09/18/20 08:33:24 Salvage Determiner: RAJAN Modifier: HAIMNOKM <+> 1 Start Time <+> 1 Anesthesia Ready [facility] IntraOp Communication Entry 1 Comment patient stated not to contact since she sleeps late Last Modified By: Sarita Gutiérrez RN 09/18/20 08:01:[address] [facility] IntraOp Delays Entry 1 Delay Reason Other Duration 1 Minute(s) Last Modified By: Sarita Gutiérrez RN 09/18/20 08:17:[address] [facility] IntraOp Departure from OR Entry 1 Integumentary Assessment Integumentary WDL Assessment WDL Transfer/Handoff Transfer to PACU Phase I Handoff Method Phone call Post-op Transport Stretcher/Gurney Via Patient Transport SYDNEE THOMAS NA, Accompanied by Sarita Gutiérrez RN Last Modified By: Sarita Gutiérrez RN 09/18/20 08:41:[address] [facility] IntraOp Departure from OR Audit 09/18/20 08:41:49 Salvage Determiner: RAJAN Modifier: RAJAN <+> 1 Patient Transport Accompanied by <+> 1 Handoff Method [facility] IntraOp Fire Risk Assessment Entry 1 Fire Info Surgical Site or 0- No Incision Above the Xyphoid Open O2 Source 1- Yes (Mask or Cannula) Available Ignition 0- No (ESU, Laser, Light Source) Fire Risk 1 Assessment Score Fire Score Fire Risk Yes Assessment Complete Fire Risk Sarita Gutiérrez RN Assessment Verified By Fire Risk 09/18/20 08:02:00 Assessment Verified Date/Time Fire Risk Standard Fire Yes Safety Precautions Followed Last Modified By: Sarita Gutiérrez RN 09/18/20 08:02:[address] [facility] IntraOp General Case Real Estate Agent/Broker 1 Case Information OR OR [address] [facility] Case Level 1 Room Verified Yes Wound Class II - Clean-Contaminated Specialty SN Urology Anesthesia Type General ASA Class 3 Diagnosis Preop Diagnosis left nephrolithiasis Postop Same As Preop Yes Postop Diagnosis left nephrolithiasis Last Modified By: Sarita Gutiérrez RN 09/18/20 08:06:[address] [facility] IntraOp Implant Log Entry 1 Type Implant (Synthetic) Implant Log Implant Type Other Implant STENT URET BRAID + Identification [id number] Description Implant Quantity 1 Implant Site left ureter Implant [id number] Identification Model Number Implant [id number] Identification Serial Number Implant Mitchell Identification Sci:Urology/Gynecology Ehs Manager Name: Implant [id number] Identification Catalog Number Implant Size 4.8 x 26 Implant Has an Yes Expiration Date Tissue Implant Last Modified By: Sarita Gutiérrez RN 09/18/20 08:16:[address] [facility] IntraOp Intraoperative Assessment Entry 1 Valid History / Yes Physical in Chart Preoperative Yes Checklist Reviewed/Evaluated Allergies Reviewed Yes Patient is Latex No Sensitive Isolation Not applicable Precautions Noted Level of WDL Consciousness (WDL = Alert, Oriented to Person, Place, and Time) Skin Assessment Yes Verified Present Upon IVs Arrival to OR Last Modified By: Sarita Gutiérrez RN 09/18/20 08:03:[address] [facility] IntraOp Intraoperative Equipment Entry 1 Type Equipment Equipment Intraop Monitoring Antiembolic Devices Antiembolic Devices Sequential compression device, knee high Antiembolic Device Bilateral Location Antiembolic Device [id number] ID Number Scopes Photo/Video Documentation Last Modified By: Sarita Gutiérrez RN 09/18/20 08:08:[address] [facility] IntraOp Medication Admin Entry 1 Entry 2 Medication/Irrigant lidocaine 2% urojet Normal Saline 0.9% 10ml jelly - [id number] 1000ml irrigation - [id number] Combo Med List Time Administered 09/18/20 07:59:00 09/18/20 07:45:00 Route of topiocal irrigation Administration Dose Dose 10 100 Unit of Measure ml ml Volume Administered By Procedure Irrigation Irrigant Volume In Irrigant Volume Out Last Modified By: Sarita Gutiérrez RN Shannon, Karen, RN 09/18/20 08:10:41 09/18/20 08:12:[address] [facility] IntraOp Medication Admin Audit 09/18/20 08:12:51 Salvage Determiner: RAJAN Modifier: RAJAN <+> 2 Medication/Irrigant <+> 2 Route of Administration <+> 2 Dose <+> 2 Time Administered <+> 2 Unit of Measure [facility] IntraOp Patient Positioning Entry 1 Procedure ESWL/Stent/Cysto(Left) Body Position Lithotomy Left Arm Position Tucked and padded at side Right Arm Position Tucked and padded at side Left Leg Position Secured in Leg [place] Right Leg Position Secured in Leg [place] Feet Uncrossed Yes Pressure Points Yes Checked Positioning Devices Head Rest, Table, Cysto, Pad, Elbow, Stirrups/Leg [place], Cysto Device Position SUPINE AFTER CYSTO WITH LEG WEDGE UNDER KNEES AND PILLOW UNDER FEET/ANKLES Positioned By JENNIFER CARRANZA JR, MD-URO, Sarita Gutiérrez RN, Estrellita Thurman Position Verified Positioning Yes Verified by Anesthesia Positioning Yes Verified by Surgeon Last Modified By: Sarita Gutiérrez RN 09/18/20 08:11:[address] [facility] IntraOp Sign In Entry 1 Patient, Site, Yes Procedure Identified Surgical Consent Yes Confirmed Relevant Surgical Yes Documents Available Surgical Site Yes Marked by person performing procedure Anesthesia Machine Yes Check Completed Medication Checks Yes Completed Allergies Yes Airway Difficult Yes Airway/Aspiration Risk Difficult Yes Airway/Aspiration Intervention Equipment Available Blood Loss Risk Yes Blood Loss Yes Intervention Equipment Prepared and Ready Hypothermia Risk Yes Warming Measures Yes Taken Last Modified By: Sarita Gutiérrez RN 09/18/20 08:11:[address] [facility] IntraOp Sign Out Entry 1 RN Confirmation Surgical Yes Procedure(s) Identified Instrument, Sponge N/A and Sharps Counts Correct/Documented Equipment Problems N/A Documented Specimen Labeled N/A Correctly Urinary Catheter N/A Documented in IView Staley Patient Yes Recovery Concerns Reviewed with Anesthesia Provider, Surgeon and RN Staley Patient Yes Management Concerns Reviewed with Anesthesia Provider, Surgeon and RN Safety Checklist Yes Elements Complete? RN Sign Out Sarita Gutiérrez RN Signature RN Sign Out 09/18/20 08:54:00 Signature Date/Time Plan of Care Outcome - Fire Risk OUTCOME STATEMENT: Goal met Patient is free from injury related to surgical fire Plan of Care Outcome - Pt Positioning OUTCOME STATEMENT: Goal met Absence of signs and symptoms of positioning injury. Plan of Care Outcome - Skin Prep OUTCOME STATEMENT: Goal met Intraoperative care is consistent with measures to prevent infection Plan of Care Outcome - Xray/Images OUTCOME STATEMENT: Goal met Absence of observable signs or symptoms of radiation injury Plan of Care Outcome - Counts OUTCOME STATEMENT: Goal met Absence of signs and symptoms of injury related to extraneous objects Last Modified By: Sarita Gutiérrez RN 09/18/20 08:54:[address] [facility] IntraOp Skin Prep Entry 1 Procedure ESWL/Stent/Cysto(Left) Prescribed N/A Pre-Surgical Prep Completed Prep Area genitalia Intraop Prep Integumentary WDL Assessment WDL Prep Agents Betadine solution Prep by Sarita Gutiérrez RN Hair Removal Methods No hair removal performed Last Modified By: Sarita Gutiérrez RN 09/18/20 08:07:[address] [facility] IntraOp Surgical Procedures Entry 1 Procedure ESWL/Stent/Cysto Modifiers Left Additional (CYSTO, LT ESWL, STENT) Procedure Description Primary Procedure Yes Primary Surgeon JENNIFER CARRANZA JR, MD-URO Start 09/18/20 07:45:00 Stop 09/18/20 08:44:00 Anesthesia Type General Specialty SN Urology Wound Class II - Clean-Contaminated Last Modified By: Sarita Gutiérrez RN 09/18/20 08:54:[address] [facility] IntraOp Surgical Procedures Audit 09/18/20 08:54:42 Salvage Determiner: RAJAN Modifier: RAJAN <+> [address] [facility] IntraOp Temp Regulation Devices Entry 1 Temp Regulation Temperature Warm blankets Regulation Device Temperature Full body Regulation Site Temperature monitored per Regulation Comment anesthesia, nicholas agee available Last Modified By: Sarita Gutiérrez RN 09/18/20 08:11:[address] [facility] IntraOP Time Out Entry 1 Procedure to be ESWL/Stent/Cysto(Left) Performed Time Out Time Out Pause Time 09/18/20 07:44:00 All activity Yes suspended (unless life threatening emergency) Team Verbally Correct patient Confirms Information identity, Correct side and site are marked, Consent form is present and accurate, Agreement on the procedure to be done, Correct patient position, Relevant images/results properly labeled/appropriately displayed, Confirm antibiotics have been administered, Confirm prosthesis/implant/devic e is present, Performed in location of procedure after prepped/draped Antibiotic Yes Prophylaxis Administered Or In Progress Within the Last 60 Minutes Beta Michael Yes Administered Venous Yes Thromboembolism Prophylaxis Required Anticipated Critical Events Surgeon None expected Anesthesia Provider None expected Nursing Assures Sterility of instruments Essential Imaging Yes Labeled and Displayed Last Modified By: Sarita Gutiérrez RN 09/18/20 08:03:52 Case Comments <None> Finalized By: ASHLEY TOLLIVER Document Signatures Signed By: Sarita Gutiérrez RN 09/18/20 08:54 ASHLEY TOLLIVER 09/19/20 07:54 Unfinalized History Date/Time Username Reason for Unfinalizing Freetext Reason for Unfinalizing 09/19/20 07:53 WATTSDR Correct Billing Electronically signed by Carlos Kennedy Conversion Assistant Director Of Plant Operations Cerner at 12/02/2022 8:24 AM CDT documented in this encounter Plan of Treatment Upcoming Encounters Date Type Department Care Team (Late st Contact Info) Description 03/10/2025 9:45 AM EDT Office Visit [facility] Electrophysiology [address] [place] [address] Jorge Luis Ervin MD [address] [facility] [address] [place] [address] documented as of this encounter Visit Diagnoses Not on filedocumented in this encounter Care Teams Gusset Folder Relationship Specialty Start Date End Date Roc Bonilla MD [address] [place] [address] PCP - General General Internal Medicine 08/07/22 Marisa Coy, BELT LACER [address] [facility] [address] [place], [place] [id number] Cardiology 10/09/23 documented as of this encounter
--- OUTSIDE RECORDS SUMMARY | 2025-02-21 09:59 | XMS_ITS | Referral Summary ---
Author Organization [employer] ([place], [place], [place], [place]) Address [address] [place] [address] Care Team Providers Care Hydraulic Technician Name Role Phone Roc Bonilla MD Primary Care Provider [phone] Marisa Coy IS TECHNICIAN Unavailable Encounters Date Type Department Care Team Description 01/04/2025 Travel 01/04/2025 9:00 AM EDT Office Visit [facility] Cardiology [address] [place] [phone] Marisa Coy, IS TECHNICIAN ASCVD (arteriosclerotic cardiovascular disease) (Primary Dx); Benign essential hypertension; Hyperlipidemia; Obstructive sleep apnea; PVC (premature ventricular contraction); Morbid obesity (HCC) 12/16/2024 Telephone [facility] Cardiology [address] [place] [phone] Marisa Coy, IS TECHNICIAN Results 12/14/2024 Telephone [facility] Cardiology [address] [place] [phone] Marisa Coy, IS TECHNICIAN Results 12/13/2024 Refill [facility] Electrophysiology [address] [place] [phone] Jorge Luis Ervin MD 12/10/2024 8:38 AM EDT - 12/10/2024 11:59 PM EDT Hospital Encounter [facility] Non-Invasive Cardiology [address] [place] [address] Marisa Coy, IS TECHNICIAN Dyspnea on exertion; Angina at rest (HCC); ASCVD (arteriosclerotic cardiovascular disease); Benign essential hypertension Discharge Disposition: Home or Self Care 12/10/2024 8:38 AM EDT - 12/10/2024 11:59 PM EDT Hospital Encounter [facility] Nuclear Medicine [address] [place] [address] Marisa Coy, IS TECHNICIAN Discharge Disposition: Home or Self Care 12/10/2024 8:38 AM EDT - 12/10/2024 11:59 PM EDT Hospital Encounter [facility] Nuclear Medicine [address] [place] [address] Marisa Coy, IS TECHNICIAN Eloy Prado DO Discharge Disposition: Home or Self Care 12/10/2024 8:37 AM EDT Hospital Encounter [facility] Nuclear Medicine [address] [place] [address] Marisa Coy, IS TECHNICIAN Discharge Disposition: Home or Self Care 12/10/2024 8:37 AM EDT Hospital Encounter [facility] Nuclear Medicine [address] [place] [address] Marisa Coy, IS TECHNICIAN Dyspnea on exertion; Angina at rest (HCC); ASCVD (arteriosclerotic cardiovascular disease); Benign essential hypertension Discharge Disposition: Home or Self Care 12/09/2024 8:00 AM EDT Clinical Support [facility] Cardiology [address] [place] [phone] Agata Bowles MA Palpitations (Primary Dx) 12/09/2024 Travel 12/09/2024 9:45 AM EDT Office Visit [facility] Electrophysiology [address] [place] [phone] Jorge Luis Ervin MD Palpitations (Primary Dx) 11/26/2024 Travel 11/26/2024 10:15 AM EDT Office Visit [facility] Cardiology [address] [place] [phone] Marisa Coy APRN Dyspnea on exertion (Primary Dx); Angina at rest (HCC); ASCVD (arteriosclerotic cardiovascular disease); Benign essential hypertension; Obstructive sleep apnea; Hyperlipidemia; Obesity (BMI 30.0-34.9) from Last 3 Months Allergies Active Allergy Reactions Criticality Noted Date Comments Morphine Nausea And Vomiting 08/07/2022 Metaxalone 08/07/2022 Tolmetin Other (See Comments) 08/07/2022 Medications zolpidem (AMBIEN) 5 MG tabletIndications:I nsomnia, unspecified type Take 1 tablet (5 mg total) by mouth every night as needed. Active aspirin 81 MG EC tabletIndications:A SCVD (arteriosclerotic cardiovascular disease) Take 1 tablet (81 mg total) by mouth daily. Active diazePAM (VALIUM) 5 MG tabletIndications:E ncounter for general adult medical examination without abnormal findings Take 1 tablet (5 mg total) by mouth 2 (two) times daily as needed. Active escitalopram oxalate (LEXAPRO) 10 MG tabletIndications:E ncounter for general adult medical examination without abnormal findings Take 1 tablet (10 mg total) by mouth daily. Active linaCLOtide (LINZESS) 145 mcg CapIndications:Enco unter for general adult medical examination without abnormal findings Take 1 capsule (145 mcg total) by mouth daily as needed As needed. Active rosuvastatin (CRESTOR) 20 MG tabletIndications:H istory of obstructive sleep apnea TAKE ONE TABLET BY MOUTH EVERY night 90 tablet 4 Active potassium citrate 15 mEq TbER Take 1 tablet (15 mEq total) by mouth 2 (two) times daily. 3 Active codeine-guaifenesin (GUAIFENESIN AC) 10-100 mg/5 mL liquid Take 5 mLs by mouth 3 (three) times daily as needed for cough. Active bisoprolol (ZEBETA) 5 MG tabletIndications:E ssential (primary) hypertension,Ventri cular premature depolarization TAKE 1/2 TABLET BY MOUTH EVERY DAY 90 tablet 3 5 Active flecainide (TAMBOCOR) 50 MG tabletIndications:P alpitations TAKE 1 AND 1/2 TABLET BY MOUTH TWICE DAILY 270 tablet 4 5 Active amLODIPine (NORVASC) 5 MG tablet TAKE ONE TABLET BY MOUTH EVERY DAY 90 tablet 4 Active Active Problems Problem Noted Date Diagnosed Date Obstructive sleep apnea 05/28/2024 Anxiety 08/07/2022 Insomnia, unspecified type 08/07/2022 Benign essential hypertension 08/02/2021 Hyperlipidemia 08/02/2021 Palpitations 08/02/2021 Ventricular premature depolarization 08/02/2021 ASCVD (arteriosclerotic cardiovascular disease) 06/23/2019 Hearing loss 06/23/2019 COPD (chronic obstructive pulmonary disease) PVC (premature ventricular contraction) Resolved Problems Problem Noted Date Diagnosed Date Resolved Date History of obstructive sleep apnea 08/07/2022 05/28/2024 Myocardial infarction 08/07/20222021 Social History Tobacco Use Types Packs/Day Years [...] Date Ajit rded Speak language other than Brazilian at home Not on file 08/28/2023 Want [...] file Not on file Not on file Last Filed Vital Signs Vital Sign Reading Time Taken Comments Blood Pressure 120/80 01/04/2025 8:57 AM EDT Pulse 56 01/04/2025 8:57 AM EDT Temperature 36.1 C (97 F) 06/16/2023 1:24 PM EDT Respiratory Rate 20 06/16/2023 1:24 PM EDT Oxygen Saturation 91% 12/10/2024 9:32 AM EDT Inhaled Oxygen Concentration - - Weight 105.2 kg (232 lb) 01/04/2025 8:57 AM EDT Height 185.4 cm (6' 1 ) 01/04/2025 8:57 AM EDT Body Mass Index 30.61 01/04/2025 8:57 AM EDT Plan of Treatment Upcoming Encounters Date Type Department Care Team (Late st Contact Info) Description 03/10/2025 9:45 AM EDT Office Visit [facility] Electrophysiology [address] [place] [address] Jorge Luis Ervin MD [address] [place] [address] [address] [place] [address] Procedures Procedure Name Priority Date/Time Associated Diagnosis Comments FS_MODEL_IP_ECG 12-LEAD Routine 01/05/2025 4:48 PM EDT ASCVD (arteriosclerotic cardiovascular disease) Benign essential hypertension HOLTER MONITOR HOOKUP Routine 12/28/2024 12:07 PM EDT Palpitations ECHO COMPLETE (DOPPLER / COLOR) W CONTRAST Routine 12/10/2024 1:36 PM EDT Dyspnea on exertion Angina at rest (HCC) ASCVD (arteriosclerotic cardiovascular disease) Benign essential hypertension NM MYOCARDIAL PERFUSION SPECT, PHARM Routine 12/10/2024 12:40 PM EDT Dyspnea on exertion Angina at rest (HCC) ASCVD (arteriosclerotic cardiovascular disease) Benign essential hypertension FS_MODEL_IP_ECG_STR ESS_IMAGING Routine 12/10/2024 11:53 AM EDT FS_MODEL_IP_ECG 12-LEAD Routine 12/09/2024 10:42 AM EDT Palpitations FS_MODEL_IP_ECG 12-LEAD Routine 12/01/2024 12:52 PM EDT ASCVD (arteriosclerotic cardiovascular disease) Benign essential hypertension from Last 3 Months Results * ECG 12 lead (01/05/2025 4:48 PM EDT) Only the most recent of3 resultswithin the time period is included. [facility] ECG ORDERABLES Final Result * HOLTER MONITOR HOOKUP (12/28/2024 12:07 PM EDT) Anatomical Region Laterality Modality Other us Jorge Luis Ervin MD CV CARDIAC SERVICES ORDERABLES F inal Result * ECHO COMPLETE (DOPPLER / COLOR) W CONTRAST (12/10/2024 1:36 PM EDT) Anatomical Region Laterality Modality Heart Vascular Ultraso und 12/10/2024 9:26 AM EDT Narrative 12/10/2024 6:20 PM EDT TRANSTHORACIC ECHOCARDIOGRAPHY REPORT Demographics Patient Name: MARTHA Jeffery : 1955 Age: 69 year(s) Corporate ID Number: [id number] Gender Male Door Puller: Fidel [facility]ier [facility] Height: 73 inches Referring Physician: DOYLE MATHEWS Weight: 232 pounds Interpreting Physician: ELOY PRADO DO BMI: 30.61 kg/m^2 Date of Service: 12/10/2024 Type of Study: TTE procedure: ECHO COMPLETE (DOPPLER / COLOR) W OR WO CONTRAST. Study Location: Echo LabTechnical Quality: Adequate visualization History/Tech Notes: Indication: Dyspnea on exertion R06.09, angina at rest I20.89, ASCVC I25.10 Impression: Technically difficult study due to patient body habitus. Optison ultrasound enhancing agent administered for endocardial border definition. ######################################## Normal sized left ventricle. Normal left ventricular wall thickness. Visually estimated ejection fraction 55% +/- 5%. Normal left ventricular systolic function. Normal left ventricular diastolic function. No hemodynamically significant valvular heart disease. ###################################### Measurements Summary: LVEDd: 5.76 cm LVESd: 4.15 cm IVSEd: 0.87 cm AO Root:3.16 cm LVPWd: 0.78 cm Contractility Score Normal Left Ventricular contractility was noted. LV regional wall motion: (0-Not visualized 1-Normal 2-Hypokinesis 3-Akinesis 4-Dyskinesis 5-Aneurysm) Left Ventricle Peak E-wave: 0.59 Peak A-wave: 0.67 m/s E/A ratio: 0.89 m/s Volume lvewwrrto208.91 LV length: 6.76 cm ml Volume utlwvnbp57.33 ml LVOT diameter: 2.06 cm Normal sized left ventricle. Normal left ventricular wall thickness. Visually estimated ejection fraction 55% +/- 5%. Normal left ventricular systolic function. Unable to measure systolic strain due to poorly visualized wall segments. Normal left ventricular diastolic function. No left ventricular masses or thrombi. Right Ventricle Diastolic dimension: 3.97 cm RV systolic pressure: 33.8 mmHg Normal sized right ventricle. Normal TAPSE c/w normal right ventricular function Left Atrium LA dimension: 3.2 cm LA volume:48.76 ml LA/Aorta: 1.01 Normal sized left atrium. Normal left atrial volume index 21ml/m^2. Intact atrial septum. No atrial mass or thrombus. Right Atrium Normal sized right atrium. Intact atrial septum. No atrial mass or thrombus. Mitral Valve Deceleration time: 194.78 msec Structurally normal mitral valve. Trace mitral regurgitation. No mitral stenosis. No masses or vegetations seen. Aortic Valve LVOT VTI: 18.09 cm Three cusped aortic valve No aortic regurgitation. No aortic stenosis. No masses or vegetations seen. Tricuspid Valve TR velocity: 2.77 m/s TR gradient: 30.44279 mmHg Estimated RAP: 3 mmHg RVSP: 33.8 mmHg Structurally normal tricuspid valve. Mild (1+) tricuspid regurgitation. No tricuspid stenosis. No masses or vegetations seen. Pulmonic Valve Acceleration time: 106.57 msec PASP: 33.8 mmHg Pulmonic valve not well visualized. No pulmonic regurgitation. No pulmonic stenosis. No masses or vegetations seen. Great Vessels Aorta Aortic Root: 3.16 cm LVOT Diameter: 2.06 cm Visualized thoracic aorta is normal. Normal aortic root. No evidence of dissection. Normal IVC with appropriate collapse. Pericardium / Pleura No pericardial effusion. Procedure Note Eloy Prado DO - 12/10/2024 TRANSTHORACIC ECHOCARDIOGRAPHY REPORT Demographics Patient Name: MARTHA Jeffery : 1955 Age: 69 year(s) Corporate ID Number: [id number] Gender Male Door Puller: Fidel Frazier RVT, RDCS Height: 73 inches [facility] Weight: 232 pounds Interpreting Physician: ELOY PRADO DO BMI: 30.61kg/m^2 Date of Service: 12/10/2024 Type of Study: TTE procedure: ECHO COMPLETE (DOPPLER / COLOR) W OR WO CONTRAST. Study Location: Echo LabTechnical Quality: Adequate visualization History/Tech Notes: Indication: Dyspnea on exertion R06.09, angina at rest I20.89, ASCVC I25.10 Impression: Technically difficult study due to patient body habitus. Optison ultrasound enhancing agent administered for endocardial border definition. ######################################## Normal sized left ventricle. Normal left ventricular wall thickness. Visually estimated ejection fraction 55% +/- 5%. Normal left ventricular systolic function. Normal left ventricular diastolic function. No hemodynamically significant valvular heart disease. ###################################### Measurements Summary: LVEDd: 5.76 cm LVESd: 4.15 cm IVSEd: 0.87 cm AO Root:3.16 cm LVPWd: 0.78 cm Contractility Score Normal Left Ventricular contractility was noted. LV regional wall motion: (0-Not visualized 1-Normal 2-Hypokinesis 3-Akinesis 4-Dyskinesis 5-Aneurysm) Left Ventricle Peak E-wave: 0.59 Peak A-wave: 0.67 m/s E/A ratio: 0.89 m/s Volume cfshizziv876.91 LV length: 6.76 cm ml Volume duppsjzx47.33 ml LVOT diameter: 2.06 cm Normal sized left ventricle. Normal left ventricular wall thickness. Visually estimated ejection fraction 55% +/- 5%. Normal left ventricular systolic function. Unable to measure systolic strain due to poorly visualized wallsegments. Normal left ventricular diastolic function. No left ventricular masses or thrombi. Right Ventricle Diastolic dimension: 3.97 cm RV systolic pressure: 33.8 mmHg Normal sized right ventricle. Normal TAPSE c/w normal right ventricular function Left Atrium LA dimension: 3.2 cm LA volume:48.76 ml LA/Aorta: 1.01 Normal sized left atrium. Normal left atrial volume index 21ml/m^2. Intact atrial septum. No atrial mass or thrombus. Right Atrium Normal sized right atrium. Intact atrial septum. No atrial mass or thrombus. Mitral Valve Deceleration time: 194.78 msec Structurally normal mitral valve. Trace mitral regurgitation. No mitral stenosis. No masses or vegetations seen. Aortic Valve LVOT VTI: 18.09 cm Three cusped aortic valve No aortic regurgitation. No aortic stenosis. No masses or vegetations seen. Tricuspid Valve TR velocity: 2.77 m/s TR gradient: 30.46571 mmHg Estimated RAP: 3 mmHg RVSP: 33.8 mmHg Structurally normal tricuspid valve. Mild (1+) tricuspid regurgitation. No tricuspid stenosis. No masses or vegetations seen. Pulmonic Valve Acceleration time: 106.57 msec PASP: 33.8 mmHg Pulmonic valve not well visualized. No pulmonic regurgitation. No pulmonic stenosis. No masses or vegetations seen. Great Vessels Aorta Aortic Root: 3.16 cm LVOT Diameter: 2.06 cm Visualized thoracic aorta is normal. Normal aortic root. No evidence of dissection. Normal IVC with appropriate collapse. Pericardium / Pleura No pericardial effusion. [facility] CV ECHO ORDERABLES Fi nal Result * NM myocardial perfusion SPECT,pharm(LEXISCAN) (12/10/2024 12:40 PM EDT) Anatomical Region Laterality Modality Nuclear Medicine Narrative 12/14/2024 8:12 PM EDT Nuclear Cardiac Imaging Report Date of Service: 12/14/2024 NAME: Antonio Ramirez : 1955 AGE: 69 y.o. Procedure: Nuclear Medicine Cardiac Stress Test Report with Regadenoson Indication: cp Procedure: The patient was injected with 10.6mCi of Myoview and baseline SPECT images performed. Subsequently the patient underwent exercise stress testing using the Lexiscan protocol. At peak qtdcanmv55.5mCi of Myoview injected and gated SPECT imaging was performed. Stress and rest images were compared in the short axis, horizontal long axis and vertical long axis and the images were gated for ejection fraction and wall motion. Impression: Preserved left ventricular systolic function with uniform thickening of all myocardial segments. No fixed or reversible perfusion defects Overall low risk perfusion study Eloy Prado DO [facility] NM ORDERABLES Fin al Result * ECG Stress Imaging (12/10/2024 11:53 AM EDT) [facility] Stress data only-PHYSICI AN REPORT PENDING Astrid Velez RN Confirmed by Eloy Prado MD ([id number]), video editor ADELE Johnson Jamison ([id number]) on 12/10/2024 12:29:35 PM GE MUSE 12/10/2024 11:5 3 AM EDT 12/10/2024 12:29 PM EDT us Damifredy Prado ECG ORDERABLES Final Result JERRY MCCANN from Last 3 [place] [address] [employer] PPO Care Teams Hydraulic Technician Relationship Specialty Start Date End Date Roc Bonilla MD [address] [place] [address] [place] [address] PCP - General General Internal Medicine 08/07/22 Marisa Coy, IS TECHNICIAN [address] [facility] [address] [place] [address] Cardiology 10/09/23
--- OUTSIDE RECORDS SUMMARY | 2025-02-21 09:59 | XMS_ITS | Encounter Summary ---
Author Organization [employer] ([place], [place], [place], [place]) Address [address] [place] [address] Care Team Providers Care Snorkelling Instructor Name Role Phone Roc Bonilla MD Primary Care Provider [phone] Marisa Coy [employer] Unavailable [phone] Reason for Visit * Reason Comments Medication Refill Encounter Details Date Type Department Care Team (Late st Contact Info) Description 08/29/2023 Refill [facility] Cardiology [address] [phone] Angel Silver, [employer] [address] [facility] [address] [place] [address] History of obstructive sleep apnea Social History Tobacco Use Types Packs/Day Years [...] Date Ajit rded Speak language other than Macanese at home Not on file 08/28/2023 Want [...] Description 03/10/2025 9:45 AM EDT Office Visit [facility] Electrophysiology [address] [place] [address] Jorge Luis Ervin MD [address] [facility] [address] [place] [address] documented as of this encounter Visit Diagnoses Diagnosis History of obstructive sleep apnea documented in this encounter Care Teams Snorkelling Instructor Relationship Specialty Start Date End Date Roc Bonilla MD [address] [place] [address] PCP - General General Internal Medicine 08/07/22 Marisa Coy, [employer] [address] [facility] [address] [place], [place] [id number] Cardiology 10/09/23 documented as of this encounter
--- OUTSIDE RECORDS SUMMARY | 2025-02-21 09:59 | XMS_ITS | Clinical Summary ---
Author Organization [employer] ([place], [place], [place], [place]) Address [address] [place] [address] Care Team Providers Care Perfect Binder Operator Name Role Phone Roc Bonilla MD Primary Care Provider [phone] Marisa Coy ACQUISITIONS LIBRARIAN Unavailable Allergies Active Allergy Reactions Criticality Noted Date [...] BY MOUTH EVERY DAY 90 tablet 4 5 Active Active Problems Problem Noted Date Diagnosed [...] sleep apnea 08/07/2022 05/28/2024 Myocardial infarction 08/07/20222021 Encounters Date Type Department Care Team Description 01/04/2025 9:00 AM EDT Office Visit [facility] Cardiology [address] [place] [phone] Marisa Coy, ACQUISITIONS LIBRARIAN ASCVD (arteriosclerotic cardiovascular disease) (Primary Dx); Benign essential hypertension; Hyperlipidemia; Obstructive sleep apnea; PVC (premature ventricular contraction); Morbid obesity (HCC) 01/04/2025 Travel 12/16/2024 Telephone [facility] Cardiology [address] [place] [phone] Marisa Coy, ACQUISITIONS LIBRARIAN Results 12/14/2024 Telephone [facility] Cardiology [address] [place] [phone] Marisa Coy, ACQUISITIONS LIBRARIAN Results 12/13/2024 Refill [facility] Electrophysiology [address] [place] [phone] Jorge Luis Ervin MD 12/10/2024 8:38 AM EDT - 12/10/2024 11:59 PM EDT Hospital Encounter [facility] Non-Invasive Cardiology [address] [place] [address] Marisa Coy, ACQUISITIONS LIBRARIAN Dyspnea on exertion; Angina at rest (HCC); ASCVD (arteriosclerotic cardiovascular disease); Benign essential hypertension Discharge Disposition: Home or Self Care 12/10/2024 8:38 AM EDT - 12/10/2024 11:59 PM EDT Hospital Encounter [facility] Nuclear Medicine [address] [place] [phone] Marisa Coy, ACQUISITIONS LIBRARIAN Discharge Disposition: Home or Self Care 12/10/2024 8:38 AM EDT - 12/10/2024 11:59 PM EDT Hospital Encounter [facility] Nuclear Medicine [address] [place] [phone] Marisa Coy, ACQUISITIONS LIBRARIAN Eloy Pardo DO Discharge Disposition: Home or Self Care 12/10/2024 8:37 AM EDT Hospital Encounter [facility] Nuclear Medicine [address] [place] [address] Marisa Coy, ACQUISITIONS LIBRARIAN Discharge Disposition: Home or Self Care 12/10/2024 8:37 AM EDT Hospital Encounter [facility] Nuclear Medicine [address] [phone] Marisa Coy, ACQUISITIONS LIBRARIAN Dyspnea on exertion; Angina at rest (HCC); ASCVD (arteriosclerotic cardiovascular disease); Benign essential hypertension Discharge Disposition: Home or Self Care 12/09/2024 9:45 AM EDT Office Visit [facility] Electrophysiology [address] [place] [place] [phone] Jorge Luis Ervin MD Palpitations (Primary Dx) 12/09/2024 8:00 AM EDT Clinical Support [facility] Cardiology [address] [place] [address] Agata Bowles MA Palpitations (Primary Dx) 12/09/2024 Travel 11/26/2024 10:15 AM EDT Office Visit [facility] Cardiology [address] [place] [address] Marisa Coy KAILEY Dyspnea on exertion (Primary Dx); Angina at rest (HCC); ASCVD (arteriosclerotic cardiovascular disease); Benign essential hypertension; Obstructive sleep apnea; Hyperlipidemia; Obesity (BMI 30.0-34.9) 11/26/2024 Travel from Last 3 Months Family History Medical History Relation Name Comments Emphysema Father Heart disease Mother Relation Name Status Comments Father Mother Social History Tobacco Use Types Packs/Day Years [...] Date Ajit rded Speak language other than Martiniquais at home Not on file 08/28/2023 Want [...] Description 03/10/2025 9:45 AM EDT Office Visit [facility] Electrophysiology [address] [place] [address] Jorge Luis Ervin MD [address] [place] [address] [address] [place] [address] Health Maintenance Due Date Last Done Comments CT Colonography 1956 Colonoscopy 1956 Colorectal Cancer Screening 1956 FOBT/FIT 1956 Fit-DNA (Cologuard) 1956 Sigmoidoscopy 1956 Depression Screening (12+) 1968 Hepatitis C Screening 1974 Pneumococcal 50+ years (1 of 2 - PCV) 1975 Shingles Vaccine (Zoster) (1 of 2) 2006 DTAP/TDAP/TD VACCINES (3 - Td or Tdap) 03/24/2012, 10/19/1996 Respiratory Syncytial Virus (RSV) Adult or (1 - Risk 60-74 years 1-dose series) 2016 Abdominal Aortic Aneurysm (AAA) Screen 2021 Medicare Initial AWV G0438 05/19/2022 COVID-19 VACCINE (3 - 2023- season) 2024, 04/12/2021 Falls Risk Screening 08/18/2024 Influenza Vaccine (#1) 2025 Tobacco Cessation Counseling and Screening (12+) 01/04/2026 01/04/2025 Procedures Procedure Name Priority Date/Time Associated Diagnosis [...] of3 resultswithin the time period is included. us [facility] Final Result * HOLTER MONITOR [...] 1955 Age: 69 year(s) Corporate ID Number: [id number] Gender Male Typo Machine Operator: Fidel Frazier RVT, RDCS Height: 73 inches Referring Physician: DOYLE MATHEWS [...] 0.67 m/s E/A ratio: 0.89 m/s Volume [id number] LV length: 6.76 cm ml Volume vjwjozqa67.33 ml LVOT diameter: 2.06 cm Normal sized [...] Valve TR velocity: 2.77 m/s TR gradient: 30.50630 mmHg Estimated RAP: 3 mmHg RVSP: 33.8 [...] 1955 Age: 69 year(s) Corporate ID Number: [id number] Gender Male Typo Machine Operator: Fidel Frazier RVT, RDCS Height: 73 inches Referring Physician: DOYLE MATHEWS [...] 0.67 m/s E/A ratio: 0.89 m/s Volume [id number] LV length: 6.76 cm ml Volume ooifyori97.33 ml LVOT diameter: 2.06 cm Normal sized [...] Valve TR velocity: 2.77 m/s TR gradient: 30.01400 mmHg Estimated RAP: 3 mmHg RVSP: 33.8 [...] collapse. Pericardium / Pleura No pericardial effusion. us Marisa Coy APRN CV ECHO ORDERABLES Fi nal Result * [...] testing using the Lexiscan protocol. At peak jvljohmw79.5mCi of Myoview injected and gated SPECT imaging [...] low risk perfusion study Eloy Prado DO us [facility] NM ORDERABLES Fin al Result * ECG Stress Imaging (12/10/2024 11:53 AM EDT) Pathologist [facility] Diagnosis Stress data only-PHYSICI AN REPORT PENDING Astrid Velez RN Confirmed by Eloy Prado MD ([id number]), news copy editor ADELE Johnson Jamison ([id number]) on 12/10/2024 12:29:35 PM GE MUSE 12/10/2024 11:5 3 AM EDT 12/10/2024 12:29 PM EDT us Eloy Prado DO ECG ORDERABLES Final Result GE MUSE from Last 3 Months Insurance [facility] MEDICARE PPO Care Teams Perfect Binder Operator Relationship Specialty Start Date End Date Roc Bonilla MD [address] [place] [address] [place] [address] PCP - General General Internal Medicine 08/07/22 Marisa Coy, ACQUISITIONS LIBRARIAN [address] [facility] [address] [place] [address] Cardiology 10/09/23
--- OUTSIDE RECORDS SUMMARY | 2025-02-21 09:59 | XMS_ITS | Encounter Summary ---
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 Unavailable [phone] Encounter Details Date Type Department Care Team (Latest Contact Info) Description 01/04/2025 Travel Social History Tobacco Use Types Packs/Day Years [...] Date Ajit rded Speak language other than Moldovan at home Not on file 08/28/2023 Want [...] Description 03/10/2025 9:45 [place] [phone] Jorge Luis Ervin MD [address] [facility] [address] [place] [address] documented as of this encounter Visit Diagnoses Not on filedocumented in this encounter Care Teams Metal Rolling Mill Operator Relationship Specialty Start Date End Date Roc Bonilla MD [address] [place] [address] [place] [address] PCP - General General Internal Medicine 08/07/22 Marisa Coy, KAILEY [address] [facility] [address] [place] [phone] Cardiology 10/09/23 documented as of this encounter
== END 2025-02-17 23:59 | disposition home or self-care (01) ==
LOC: LAB.DROPOF 02-21 09:48
PROVIDERS: PCP Internal Medicine; Visit Provider Internal Medicine
DX: I25.10 Atherosclerotic heart disease of native coronary artery without angina pectoris (principal); E78.5 Hyperlipidemia, unspecified; I49.3 Ventricular premature depolarization; Z87.442 Personal history of urinary calculi
CPT/HCPCS: 80053; 80061